=== PATIENT | female | born 1940 | race Caucasian/White ===

== ENCOUNTER → 2018-04-09 10:08 | Outpatient (CLI) | payer MEDICARE, SELFPAY ==
[2018-04-09 15:50] LABS: Absolute Lymphocyte Count 1.29 X10^3/ul (0.83-4.51); Basophil# 0.02 X10^3/uL; Basophil% 0.3 % (0-1); Eosinophil# 0.19 X10^3/uL; Eosinophils% 3.3 % (0-5); Hematocrit 41.3 % (37-47); Hemoglobin 13.6 g/dl (12.0-15.0); Lymphocyte # 1.29 X10^3/ul (4.0); Lymphocyte % 22.2 % (19-41); Mean Corp Hgb Conc 32.9 g/gl (32-36); Mean Corpuscular Hgb 31.4 pg (27.0-32.0); Mean Corpuscular Volume 95.4 fL (81-99); Mean Platelet Vol. 10.3 fl (6.2-12.0); Monocyte# 0.34 X10^3/uL; Monocyte% 5.8 % (0-10); Neutrophil # 3.97 X10^3/uL (2.7-7.7); Neutrophil % 68.2 % (47-70); Platelet Count 251 K/mm3 (150-450); RBC Distribution Width CV 12.8 % (11.6-14.6); RBC Distribution Width SD 43.3 fl (35.1-43.9); Red Blood Count 4.33 M/mm3 (4.2-5.4); White Blood Count 5.8 K/mm3 (4.4-11.0)
[2018-04-09 15:59] LABS: POSITIVE COUNT NO; POSITIVE DIFFERENTIAL NO; POSITIVE MORPHOLOGY NO
[2018-04-09 16:10] LABS: ALB/GLOB Ratio 1.2 RATIO (0.9-2.4); AST(SGOT) 20 U/L (15-37); Alanine Aminotransfer ALT/SGPT 20 U/L (13-56); Albumin, Serum 4.3 g/dL (3.2-5.0); Alkaline Phosphatase 92 U/L (45-117); Anion Gap 7 (5-15); BUN 19 mg/dL (7-18); BUN/Creat Ratio 21.6 RATIO (10-20); Calcium,Total 9.1 mg/dL (8.5-10.1); Chloride 107 mmol/L (98-107); Creatinine, Serum 0.88 mg/dL (0.55-1.02); EST Glomerular Filtration Rate 66 mL/min (>60); Est Glom Filt Rate - Afr Amer 80 mL/min (>60); Globulin 3.6 g/dL (2.2-4.2); Glucose 88 mg/dL (74-106); Potassium 4.8 mmol/L (3.5-5.1); Protein, Total 7.9 g/dL (6.4-8.2); Sodium Level 140 mmol/L (136-145); Thyroid Stim Hormone (TSH) 2.61 uIU/mL (0.358-3.74)
[2018-04-10 09:01] LABS: Vitamin D,25 Hydroxy 28.5 ng/mL (29.95-100.01)
== END ==
PROVIDERS: Family Provider Family Medicine Geriatric Medicine; PCP Family Medicine Geriatric Medicine; Visit Provider Family Medicine Geriatric Medicine
DX: R53.83 Other fatigue (principal); E55.9 Vitamin D deficiency, unspecified
CPT/HCPCS: 36415; 80053; 82306; 84443; 85025

== ENCOUNTER → 2018-10-08 10:49 | Outpatient (CLI) | payer MEDICARE, SELFPAY ==
[2018-10-08 12:28] LABS: Absolute Lymphocyte Count 0.93 X10^3/ul (0.83-4.51); Absolute Neutrophil Count 5.3 X10^3/uL (2.0-7.7); Basophil# 0.03 X10^3/uL; Basophil% 0.4 % (0-1); Eosinophil# 0.27 X10^3/uL; Eosinophils% 3.9 % (0-5); Hematocrit 42.6 % (37-47); Hemoglobin 13.6 g/dl (12.0-15.0); Lymphocyte # 0.93 X10^3/ul (4.0); Lymphocyte % 13.4 % (19-41); Mean Corp Hgb Conc 31.9 g/gl (32-36); Mean Corpuscular Hgb 30.8 pg (27.0-32.0); Mean Corpuscular Volume 96.4 fL (81-99); Mean Platelet Vol. 10.2 fl (6.2-12.0); Monocyte# 0.41 X10^3/uL; Monocyte% 5.9 % (0-10); Neutrophil # 5.28 X10^3/uL (2.7-7.7); Neutrophil % 76.3 % (47-70); Platelet Count 241 K/mm3 (150-450); RBC Distribution Width CV 13.3 % (11.6-14.6); Red Blood Count 4.42 M/mm3 (4.2-5.4); White Blood Count 6.9 K/mm3 (4.4-11.0)
[2018-10-08 12:34] LABS: POSITIVE COUNT NO; POSITIVE DIFFERENTIAL NO; POSITIVE MORPHOLOGY NO
[2018-10-08 12:36] LABS: Vitamin D,25 Hydroxy 31.6 ng/mL (29.95-100.01)
[2018-10-08 12:46] LABS: ALB/GLOB Ratio 1.2 RATIO (0.9-2.4); AST(SGOT) 21 U/L (15-37); Alanine Aminotransfer ALT/SGPT 25 U/L (13-56); Albumin, Serum 4.3 g/dL (3.2-5.0); Alkaline Phosphatase 87 U/L (45-117); Anion Gap 9 (5-15); BUN 22 mg/dL (7-18); BUN/Creat Ratio 22.3 RATIO (10-20); Calcium,Total 9.1 mg/dL (8.5-10.1); Chloride 105 mmol/L (98-107); Creatinine, Serum 0.98 mg/dL (0.55-1.02); EST Glomerular Filtration Rate 58 mL/min (>60); Est Glom Filt Rate - Afr Amer 70 mL/min (>60); Globulin 3.6 g/dL (2.2-4.2); Glucose 85 mg/dL (74-106); Potassium 4.9 mmol/L (3.5-5.1); Protein, Total 7.9 g/dL (6.4-8.2); Sodium Level 140 mmol/L (136-145); Thyroid Stim Hormone (TSH) 3.07 uIU/mL (0.358-3.74)
== END ==
PROVIDERS: Family Provider Family Medicine Geriatric Medicine; PCP Family Medicine Geriatric Medicine; Visit Provider Family Medicine Geriatric Medicine
DX: E55.9 Vitamin D deficiency, unspecified (principal); R53.83 Other fatigue
CPT/HCPCS: 36415; 80053; 82306; 84443; 85025

== ENCOUNTER → 2019-01-26 14:58 | Outpatient (CLI) | payer MEDICARE, SELFPAY | PROVIDERS: Family Provider Family Medicine Geriatric Medicine; PCP Family Medicine Geriatric Medicine; Visit Provider Family Medicine Geriatric Medicine | DX: N39.0 Urinary tract infection, site not specified (principal) | CPT/HCPCS: 87086; 87088 ==

== ENCOUNTER → 2019-04-14 12:18 | Outpatient (CLI) | payer MEDICARE, SELFPAY ==
[2019-04-14 13:15] LABS: Absolute Lymphocyte Count 1.26 X10^3/ul (0.83-4.51); Absolute Neutrophil Count 5.2 X10^3/uL (2.0-7.7); Basophil# 0.03 X10^3/uL; Basophil% 0.4 % (0-1); Eosinophil# 0.38 X10^3/uL; Eosinophils% 5.1 % (0-5); Hemoglobin 13.5 g/dl (12.0-15.0); Lymphocyte # 1.26 X10^3/ul (4.0); Lymphocyte % 16.9 % (19-41); Mean Corp Hgb Conc 32.9 g/gl (32-36); Mean Corpuscular Hgb 31.4 pg (27.0-32.0); Mean Corpuscular Volume 95.3 fL (81-99); Mean Platelet Vol. 10.1 fl (6.2-12.0); Monocyte# 0.56 X10^3/uL; Monocyte% 7.5 % (0-10); Neutrophil # 5.19 X10^3/uL (2.7-7.7); Neutrophil % 69.8 % (47-70); Platelet Count 255 K/mm3 (150-450); RBC Distribution Width CV 13.3 % (11.6-14.6); RBC Distribution Width SD 45.6 fl (35.1-43.9); White Blood Count 7.4 K/mm3 (4.4-11.0)
[2019-04-14 13:25] LABS: POSITIVE COUNT NO; POSITIVE DIFFERENTIAL NO; POSITIVE MORPHOLOGY NO
[2019-04-14 13:31] LABS: Vitamin D,25 Hydroxy 25.6 ng/mL (29.95-100.01)
[2019-04-14 13:35] LABS: ALB/GLOB Ratio 1.1 RATIO (0.9-2.4); AST(SGOT) 20 U/L (15-37); Alanine Aminotransfer ALT/SGPT 26 U/L (13-56); Alkaline Phosphatase 76 U/L (45-117); Anion Gap 7 (5-15); BUN 20 mg/dL (7-18); BUN/Creat Ratio 19.4 RATIO (10-20); Chloride 108 mmol/L (98-107); Creatinine, Serum 1.03 mg/dL (0.55-1.02); EST Glomerular Filtration Rate 55 mL/min (>60); Est Glom Filt Rate - Afr Amer 66 mL/min (>60); Globulin 3.6 g/dL (2.2-4.2); Glucose 75 mg/dL (74-106); Potassium 4.2 mmol/L (3.5-5.1); Protein, Total 7.6 g/dL (6.4-8.2); Sodium Level 141 mmol/L (136-145); Thyroid Stim Hormone (TSH) 3.48 uIU/mL (0.358-3.74)
== END ==
PROVIDERS: Family Provider Family Medicine Geriatric Medicine; PCP Family Medicine Geriatric Medicine; Visit Provider Family Medicine Geriatric Medicine
DX: E55.9 Vitamin D deficiency, unspecified (principal); R53.83 Other fatigue
CPT/HCPCS: 36415; 80053; 82306; 84443; 85025

== ENCOUNTER → 2019-06-15 07:00 | Outpatient (CLI) | payer MEDICARE, SELFPAY ==
--- NOTE | 2019-06-15 07:00 | BI_ITS ---
MAMMOGRAPHY - BILATERAL SCREENING 3-D TOMOSYNTHESIS REASON FOR EXAM: Female, 79 years old. Bilateral Screening 3-D tomosynthesis PERTINENT HISTORY: Previous stereotactic biopsy. TECHNIQUE: 2-D mammograms and 3-D Tomosynthesis of the breast (s) were performed. CAD was performed. COMPARISON: 2016 FINDINGS: The breast composition is composed of scattered fibroglandular density. Scattered benign calcifications are seen. No dense spiculated masses or suspicious microcalcifications are identified. No architectural distortion is identified. There is no skin thickening or retraction. There has been no significant change since the prior study. BI/SCREEN MAMM (CAD) W/NAVNEET BILAT IMPRESSION: No mammographic signs of malignancy. Routine yearly mammograms recommended. ASSESSMENT CATEGORY: BIRADS Category 1: Negative. A letter regarding these results will be sent to the patient by the facility within 30 days. FOLLOW UP RECOMMENDATION: Yearly follow up mammogram recommended. (A) Approximately 10% of breast cancers are not detected by mammography. A normal mammogram should not delay biopsy of a clinically suspicious abnormality. Electronically Signed: eZlalem Romero MD at 8:19 EDT , Service support ,
== END ==
PROVIDERS: Family Provider Family Medicine Geriatric Medicine; PCP Family Medicine Geriatric Medicine; Referring Provider Family Medicine Geriatric Medicine; Visit Provider Family Medicine Geriatric Medicine
DX: Z12.31 Encounter for screening mammogram for malignant neoplasm of breast (principal)
CPT/HCPCS: 77063; 77067

== ENCOUNTER → 2019-08-02 15:46 | Outpatient (CLI) | payer MEDICARE, SELFPAY | PROVIDERS: Family Provider Family Medicine Geriatric Medicine; PCP Family Medicine Geriatric Medicine | DX: R82.998 Other abnormal findings in urine (principal) | CPT/HCPCS: 87086; 87088 ==

== ENCOUNTER → 2019-09-03 13:56 | Outpatient (CLI) | payer MEDICARE, SELFPAY ==
[2019-09-03 07:39] VITALS: BMI 27.1
[2019-09-03 14:26] LABS: Mucous, Urine 0 SEEN /hpf (<or=2+); Red Blood Cells-Urine 0 SEEN /hpf (0-5)
[2019-09-03 14:51] LABS: Color, Urine Yellow (Yellow); Glucose, Dipstick Normal (Normal); Ketone-Dipstick Negative (Negative); Leukocyte Esterase-Dipstick 25 /ul (Negative); Nitrite-Dipstick Positive (Negative); Occult Blood-Urine Negative /ul (Negative); Protein-Dipstick Negative (Negative); Urine Clarity Sl. Cloudy (Clear); Urine Urobilinogen 4 mg/dl (Normal)
[2019-09-03 14:52] LABS: Urine Bilirubin Dipstick 3 mg/dL (Negative)
[2019-09-03 14:57] LABS: Bacteria RARE /hpf (None Seen); Squamous Epithelial Cells - UA 0-5 SEEN /hpf (5-10); White Blood Cells 0-5 SEEN /hpf (0-5)
== END ==
PROVIDERS: Family Provider Family Medicine Geriatric Medicine; PCP Family Medicine Geriatric Medicine; Referring Provider Physician Assistant; Visit Provider Physician Assistant
DX: R39.15 Urgency of urination (principal)
CPT/HCPCS: 81001; 87086; 87088

== ENCOUNTER → 2019-10-19 15:17 | Outpatient (CLI) | payer MEDICARE, SELFPAY ==
[2019-09-03 07:39] VITALS: BMI 27.1
--- NOTE | 2019-10-19 16:15 | RAD_ITS ---
STUDY: X-RAY - RIGHT KNEE REASON FOR EXAM: Chronic right knee pain, osteoarthritis. TECHNIQUE: 3 view(s) of the knee. COMPARISON: Radiograph report 02/21/2014. FINDINGS: Normal visualized distal femur. Normal visualized proximal tibia and fibula. Normal proximal tibiofibular articulation. There are small marginal osteophytes and severe joint space narrowing of the medial femorotibial compartment. Normal lateral femorotibial compartment. There is a small marginal osteophyte of the inferior patella without joint space narrowing of the patellofemoral articulation. The soft tissue structures are unremarkable. RAD/Knee 3 Views IMPRESSION: Arthrosis of the medial femorotibial compartment. Electronically Signed: Celso Rodriguez MD at 16:01 EST Tel , Service support ,
[2019-10-19 18:09] LABS: Absolute Lymphocyte Count 1.23 X10^3/uL (0.83-4.51); Absolute Neutrophil Count 4.1 X10^3/uL (2.0-7.7); Basophil# 0.03 X10^3/uL; Basophil% 0.5 % (0-1); Eosinophil# 0.19 X10^3/uL; Eosinophils% 3.2 % (0-5); Hematocrit 40.4 % (37-47); Hemoglobin 12.6 g/dL (12.0-15.0); Lymphocyte # 1.23 X10^3/ul (4.0); Lymphocyte % 20.8 % (19-41); Mean Corp Hgb Conc 31.2 g/dL (32-36); Mean Corpuscular Hgb 30.2 pg (27.0-32.0); Mean Corpuscular Volume 96.9 fL (81-99); Mean Platelet Vol. 10.2 fl (6.2-12.0); Monocyte# 0.35 X10^3/uL; Monocyte% 5.9 % (0-10); NRBC Flagged by Analyzer 0 % (0-5); Neutrophil % 69.4 % (47-70); Platelet Count 257 K/mm3 (150-450); RBC Distribution Width CV 12.5 % (11.6-14.6); RBC Distribution Width SD 44.3 fl (35.1-43.9); Red Blood Count 4.17 M/mm3 (4.2-5.4); White Blood Count 5.9 K/mm3 (4.4-11.0)
[2019-10-19 18:17] LABS: ALB/GLOB Ratio 1.3 RATIO (0.9-2.4); AST(SGOT) 21 U/L (15-37); Alanine Aminotransfer ALT/SGPT 23 U/L (13-56); Albumin, Serum 4.3 g/dL (3.2-5.0); Alkaline Phosphatase 82 U/L (45-117); Anion Gap 7 (5-15); BUN 17 mg/dL (7-18); BUN/Creat Ratio 17.6 RATIO (10-20); Calcium,Total 9.4 mg/dL (8.5-10.1); Chloride 109 mmol/L (98-107); Creatinine, Serum 0.97 mg/dL (0.55-1.02); EST Glomerular Filtration Rate 59 mL/min (>60); Est Glom Filt Rate - Afr Amer 71 mL/min (>60); Globulin 3.2 g/dL (2.2-4.2); Glucose 106 mg/dL (74-106); Potassium 3.9 mmol/L (3.5-5.1); Protein, Total 7.5 g/dL (6.4-8.2); Sodium Level 141 mmol/L (136-145); Thyroid Stim Hormone (TSH) 2.42 uIU/mL (0.358-3.74); Vitamin D,25 Hydroxy 25.6 ng/mL (29.95-100.01)
== END ==
PROVIDERS: Family Provider Family Medicine Geriatric Medicine; PCP Family Medicine Geriatric Medicine; Referring Provider Family Medicine Geriatric Medicine; Visit Provider Family Medicine Geriatric Medicine
DX: E55.9 Vitamin D deficiency, unspecified (principal); I10 Essential (primary) hypertension; M17.9 Osteoarthritis of knee, unspecified
CPT/HCPCS: 36415; 73562; 80053; 82306; 84443; 85025

== ENCOUNTER → 2020-06-15 13:42 | Outpatient (CLI) | payer MEDICARE, SELFPAY ==
[2019-09-03 07:39] VITALS: BMI 27.1
[2020-06-15 16:16] LABS: Thyroid Stim Hormone (TSH) 0.04 uIU/mL (0.358-3.74)
== END ==
PROVIDERS: PCP Family Medicine Geriatric Medicine; Visit Provider Family Medicine Geriatric Medicine
DX: E03.9 Hypothyroidism, unspecified (principal)
CPT/HCPCS: 36415; 84443

== ENCOUNTER → 2020-06-20 14:15 | Outpatient (CLI) | payer MEDICARE, SELFPAY ==
[2019-09-03 07:39] VITALS: BMI 27.1
--- NOTE | 2020-06-20 14:17 | BI_ITS ---
MAMMOGRAPHY - BILATERAL SCREENING REASON FOR EXAM: Female, 80 years old. Routine annual screening examination. PERTINENT HISTORY: Non-contributory. Remote left stereotactic breast biopsy. TECHNIQUE: Digital bilateral breast navneet (3D mammographic acquisition) in the CC and MLO projections. 2-D mediolateral oblique (MLO) and craniocaudad (CC) views of both breasts were obtained. CAD: Full Field Digital Mammography with Computer Added Detection was performed. COMPARISON: Comparison is made with prior study dated 06-15-19 and 01-17-16. FINDINGS: Breast Composition: There are scattered areas of fibroglandular density. There are no dominant masses or suspicious calcifications. No other significant abnormalities are identified. There has been no significant change since the prior study. BI/SCREEN MAMM (CAD) W/NAVNEET BILAT IMPRESSION: Stable bilateral screening mammogram. Yearly follow-up mammogram recommended. (A) ASSESSMENT CATEGORY: BIRADS Category 1: Negative. A letter regarding these results will be sent to the patient by the facility within 30 days. Approximately 10% of breast cancers are not detected by mammography. A normal mammogram should not delay biopsy of a clinically suspicious abnormality. [id number] Electronically Signed: Lasha Jo, at 15:20 EDT , Service support ,
== END ==
PROVIDERS: PCP Family Medicine Geriatric Medicine; Referring Provider Family Medicine Geriatric Medicine; Visit Provider Family Medicine Geriatric Medicine
DX: Z12.31 Encounter for screening mammogram for malignant neoplasm of breast (principal)
CPT/HCPCS: 77063; 77067

== ENCOUNTER → 2020-07-05 15:06 | Outpatient (CLI) | payer MEDICARE, SELFPAY ==
[2019-09-03 07:39] VITALS: BMI 27.1
[2020-07-05 15:44] LABS: Absolute Lymphocyte Count 1.21 X10^3/uL (0.83-4.51); Basophil# 0.03 X10^3/uL; Basophil% 0.5 % (0-1); Eosinophil# 0.17 X10^3/uL; Eosinophils% 2.9 % (0-5); Hemoglobin 11.5 g/dL (12.0-15.0); Lymphocyte # 1.21 X10^3/ul (4.0); Lymphocyte % 20.9 % (19-41); Mean Corp Hgb Conc 31.1 g/dL (32-36); Mean Corpuscular Hgb 29.9 pg (27.0-32.0); Mean Corpuscular Volume 96.1 fL (81-99); Mean Platelet Vol. 9.6 fl (6.2-12.0); Monocyte# 0.36 X10^3/uL; Monocyte% 6.2 % (0-10); NRBC Flagged by Analyzer 0 % (0-5); Neutrophil % 69.3 % (47-70); Platelet Count 228 K/mm3 (150-450); RBC Distribution Width CV 12.3 % (11.6-14.6); RBC Distribution Width SD 42.7 fl (35.1-43.9); Red Blood Count 3.85 M/mm3 (4.2-5.4); White Blood Count 5.8 K/mm3 (4.4-11.0)
[2020-07-05 15:52] LABS: ALB/GLOB Ratio 1.3 RATIO (0.9-2.4); AST(SGOT) 17 U/L (15-37); Alanine Aminotransfer ALT/SGPT 18 U/L (13-56); Albumin, Serum 3.8 g/dL (3.2-5.0); Alkaline Phosphatase 80 U/L (45-117); Anion Gap 6 (5-15); BUN 19 mg/dL (7-18); BUN/Creat Ratio 20.6 RATIO (10-20); Calcium,Total 8.8 mg/dL (8.5-10.1); Chloride 111 mmol/L (98-107); Creatinine, Serum 0.92 mg/dL (0.55-1.02); EST Glomerular Filtration Rate 62 mL/min (>60); Est Glom Filt Rate - Afr Amer 75 mL/min (>60); Glucose 81 mg/dL (74-106); Potassium 3.8 mmol/L (3.5-5.1); Protein, Total 6.8 g/dL (6.4-8.2); Sodium Level 142 mmol/L (136-145)
--- NOTE | 2020-07-05 16:35 | RAD_ITS ---
STUDY: X-RAY - ABDOMEN/PELVIS REASON FOR EXAM: Female, 80 years old. abdomen pain, diarrhea TECHNIQUE: AP supine and upright views of the abdomen and pelvis. COMPARISON: None. FINDINGS: Normal visualized lung bases. There is a variant loops of large and small bowel with mild distention. There is no demonstrated free abdominal air. The visualized liver, spleen and kidneys are grossly normal in size and morphology. Normal soft tissue structures. There is levoscoliosis with degenerative changes of the spine. There is artifact from clothing. RAD/Abd Inc Decub and/or Erect IMPRESSION: Air in loops of bowel suggesting ileus or enteritis. Electronically Signed: Marquis Mueller MD at 17:01 EDT , Service support ,
== END ==
PROVIDERS: PCP Family Medicine Geriatric Medicine; Referring Provider Family Medicine Geriatric Medicine; Visit Provider Family Medicine Geriatric Medicine
DX: R10.9 Unspecified abdominal pain (principal); E03.9 Hypothyroidism, unspecified
CPT/HCPCS: 36415; 74019; 80053; 85025

== ENCOUNTER → 2020-07-27 15:37 | Outpatient (CLI) | payer MEDICARE, SELFPAY ==
[2019-09-03 07:39] VITALS: BMI 27.1
[2020-07-27 17:07] LABS: Thyroid Stim Hormone (TSH) 0.11 uIU/mL (0.358-3.74)
== END ==
PROVIDERS: PCP Family Medicine Geriatric Medicine; Visit Provider Family Medicine Geriatric Medicine
DX: E03.9 Hypothyroidism, unspecified (principal)
CPT/HCPCS: 36415; 84443

== ENCOUNTER → 2020-09-21 17:19 | Outpatient (CLI) | payer MEDICARE, SELFPAY ==
[2019-09-03 07:39] VITALS: BMI 27.1
== END ==
PROVIDERS: PCP Family Medicine Geriatric Medicine; Referring Provider Family Medicine Geriatric Medicine; Visit Provider Family Medicine Geriatric Medicine
DX: R06.89 Other abnormalities of breathing (principal)
CPT/HCPCS: 87633; 87635; C9803; U0002; U0003

== ENCOUNTER → 2020-10-12 15:57 | Outpatient (CLI) | payer MEDICARE, SELFPAY ==
[2019-09-03 07:39] VITALS: BMI 27.1
--- NOTE | 2020-10-12 16:05 | RAD_ITS ---
HISTORY: low back pain that radiates down right leg ADDITIONAL HISTORY: None provided. EXAMINATION/TECHNIQUE: XR Spine Lumbar 2 or 3 Views Number of images including paperwork: 3 COMPARISON: None FINDINGS: VERTEBRAE: No acute fracture. VERTEBRAL ALIGNMENT: No traumatic subluxation. Anterolisthesis L4-5 measuring 6 mm and L5-S1 measuring 4 mm. Mild left convex lumbar curvature. DISKS AND JOINTS: Severe discogenic degenerative changes at L3-4, L4-5 and L5-S1. Mild to moderate discogenic degenerative changes elsewhere in the lumbar spine. Facet arthropathy. SOFT TISSUES: Vascular calcifications. RAD/Lumbar Spine 2 or 3 Views IMPRESSION: 1. No acute findings. 2. Lumbar spondylosis as described. at 0531 Reported and signed by: Mindy Kitchen MD Electronically Signed: Mindy Kitchen MD at 5:31 EST Tel , Service support ,
== END ==
PROVIDERS: PCP Family Medicine Geriatric Medicine; Referring Provider Family Medicine Geriatric Medicine; Visit Provider Family Medicine Geriatric Medicine
DX: M54.5 Low back pain (principal)
CPT/HCPCS: 72100

== ENCOUNTER → 2020-10-16 09:55 | Outpatient (CLI) | payer MEDICARE, SELFPAY ==
[2019-09-03 07:39] VITALS: BMI 27.1
== END ==
PROVIDERS: PCP Family Medicine Geriatric Medicine; Referring Provider Family Medicine Geriatric Medicine; Visit Provider Family Medicine Geriatric Medicine
DX: U07.1 COVID-19 (principal)
CPT/HCPCS: 87633; 87635; C9803; U0002

== ENCOUNTER → 2020-10-26 13:37 | Outpatient (CLI) | payer MEDICARE, SELFPAY ==
[2019-09-03 07:39] VITALS: BMI 27.1
[2020-10-26 17:36] LABS: Absolute Lymphocyte Count 0.93 X10^3/uL (0.83-4.51); Absolute Neutrophil Count 8.5 X10^3/uL (2.0-7.7); Basophil# 0.03 X10^3/uL; Basophil% 0.3 % (0-1); Eosinophil# 0.16 X10^3/uL; Eosinophils% 1.6 % (0-5); Hematocrit 41.3 % (37-47); Hemoglobin 13.4 g/dL (12.0-15.0); Lymphocyte # 0.93 X10^3/ul (4.0); Lymphocyte % 9.3 % (19-41); Mean Corp Hgb Conc 32.4 g/dL (32-36); Mean Corpuscular Hgb 31.5 pg (27.0-32.0); Mean Corpuscular Volume 97.2 fL (81-99); Mean Platelet Vol. 10.6 fl (6.2-12.0); Monocyte# 0.42 X10^3/uL; Monocyte% 4.2 % (0-10); NRBC Flagged by Analyzer 0 % (0-5); Neutrophil # 8.45 X10^3/uL (2.7-7.7); Neutrophil % 84.3 % (47-70); Platelet Count 265 K/mm3 (150-450); RBC Distribution Width CV 13.2 % (11.6-14.6); RBC Distribution Width SD 46.5 fl (35.1-43.9); Red Blood Count 4.25 M/mm3 (4.2-5.4)
[2020-10-26 17:50] LABS: Vitamin D,25 Hydroxy 25.6 ng/mL
[2020-10-26 17:53] LABS: ALB/GLOB Ratio 1.3 RATIO (0.9-2.4); AST(SGOT) 16 U/L (15-37); Alanine Aminotransfer ALT/SGPT 20 U/L (13-56); Albumin, Serum 4.4 g/dL (3.2-5.0); Alkaline Phosphatase 92 U/L (45-117); Anion Gap 9 (5-15); BUN 13 mg/dL (7-18); Calcium,Total 9.3 mg/dL (8.5-10.1); Chloride 108 mmol/L (98-107); EST Glomerular Filtration Rate 56 mL/min (>60); Est Glom Filt Rate - Afr Amer 68 mL/min (>60); Globulin 3.4 g/dL (2.2-4.2); Glucose 118 mg/dL (74-106); Potassium 3.7 mmol/L (3.5-5.1); Protein, Total 7.8 g/dL (6.4-8.2); Sodium Level 143 mmol/L (136-145); Thyroid Stim Hormone (TSH) 0.71 uIU/mL (0.358-3.74)
== END ==
PROVIDERS: PCP Family Medicine Geriatric Medicine; Visit Provider Family Medicine Geriatric Medicine
DX: E03.9 Hypothyroidism, unspecified (principal); E55.9 Vitamin D deficiency, unspecified; R53.83 Other fatigue
CPT/HCPCS: 36415; 80053; 82306; 84443; 85025

== ENCOUNTER → 2021-05-09 15:41 | Outpatient (CLI) | payer MEDICARE, SELFPAY ==
[2019-09-03 07:39] VITALS: BMI 27.1
[2021-05-09 16:49] LABS: Absolute Lymphocyte Count 1.42 X10^3/uL (0.83-4.51); Absolute Neutrophil Count 4.1 X10^3/uL (2.0-7.7); Basophil# 0.03 X10^3/uL; Basophil% 0.5 % (0-1); Eosinophil# 0.13 X10^3/uL; Eosinophils% 2.1 % (0-5); Hematocrit 40.1 % (37-47); Hemoglobin 12.9 g/dL (12.0-15.0); Lymphocyte # 1.42 X10^3/ul (0.83-4.51); Lymphocyte % 23.1 % (19-41); Mean Corp Hgb Conc 32.2 g/dL (32-36); Mean Corpuscular Hgb 30.6 pg (27.0-32.0); Mean Corpuscular Volume 95.2 fL (81-99); Mean Platelet Vol. 10.3 fl (6.2-12.0); Monocyte# 0.47 X10^3/uL; Monocyte% 7.6 % (0-10); NRBC Flagged by Analyzer 0 % (0-5); Neutrophil % 66.5 % (47-70); Platelet Count 290 K/mm3 (150-450); RBC Distribution Width CV 12.7 % (11.6-14.6); RBC Distribution Width SD 43.9 fl (35.1-43.9); Red Blood Count 4.21 M/mm3 (4.2-5.4); White Blood Count 6.2 K/mm3 (4.4-11.0)
[2021-05-09 17:09] LABS: ALB/GLOB Ratio 1.2 RATIO (0.9-2.4); AST(SGOT) 22 U/L (15-37); Alanine Aminotransfer ALT/SGPT 22 U/L (13-56); Albumin, Serum 4.2 g/dL (3.2-5.0); Alkaline Phosphatase 91 U/L (45-117); Anion Gap 7 (5-15); BUN 13 mg/dL (7-18); BUN/Creat Ratio 13.4 RATIO (10-20); Chloride 108 mmol/L (98-107); Creatinine, Serum 0.97 mg/dL (0.55-1.02); EST Glomerular Filtration Rate 58 mL/min (>60); Est Glom Filt Rate - Afr Amer 70 mL/min (>60); Globulin 3.5 g/dL (2.2-4.2); Glucose 77 mg/dL (74-106); Potassium 4.2 mmol/L (3.5-5.1); Protein, Total 7.7 g/dL (6.4-8.2); Sodium Level 140 mmol/L (136-145); Thyroid Stim Hormone (TSH) 1.61 uIU/mL (0.358-3.74)
[2021-05-09 17:11] LABS: Vitamin D,25 Hydroxy 32.3 ng/mL
== END ==
PROVIDERS: PCP Family Medicine Geriatric Medicine; Visit Provider Family Medicine Geriatric Medicine
DX: E55.9 Vitamin D deficiency, unspecified (principal); I10 Essential (primary) hypertension
CPT/HCPCS: 36415; 80053; 82306; 84443; 85025

== ENCOUNTER → 2021-06-22 06:56 | Outpatient (CLI) | payer MEDICARE, SELFPAY ==
[2019-09-03 07:39] VITALS: BMI 27.1
--- NOTE | 2021-06-22 07:08 | BI_ITS ---
MAMMOGRAPHY - BILATERAL SCREENING 3-D TOMOSYNTHESIS REASON FOR EXAM: Female, 81 years old. SCREENING PERTINENT HISTORY: No significant family history. TECHNIQUE: 2-D mammograms and 3-D Tomosynthesis of the breast (s) were performed. CAD was performed. COMPARISON: 06/20/2020 FINDINGS: The breast composition is composed of scattered fibroglandular density. Scattered benign calcifications are seen. No dense spiculated masses or suspicious microcalcifications are identified. No architectural distortion is identified. There is no skin thickening or retraction. There has been no significant change since the prior study. BI/SCRN MAMM (CAD)W/NAVNEET BILAT IMPRESSION: No mammographic signs of malignancy. Routine yearly mammograms recommended. ASSESSMENT CATEGORY: BIRADS Category 2: Benign. A letter regarding these results will be sent to the patient by the facility within 30 days. FOLLOW UP RECOMMENDATION: Yearly follow up mammogram recommended. (A) Approximately 10% of breast cancers are not detected by mammography. A normal mammogram should not delay biopsy of a clinically suspicious abnormality. Electronically Signed: Zelalem Romero MD at 8:57 EDT , Service support ,
== END ==
PROVIDERS: PCP Family Medicine Geriatric Medicine; Referring Provider Family Medicine Geriatric Medicine; Visit Provider Family Medicine Geriatric Medicine
DX: Z12.31 Encounter for screening mammogram for malignant neoplasm of breast (principal)
CPT/HCPCS: 77063; 77067

== ENCOUNTER → 2021-11-07 13:20 | Outpatient (CLI) | payer MEDICARE, SELFPAY ==
[2021-11-07 16:43] LABS: Absolute Lymphocyte Count 1.18 X10^3/uL (0.83-4.51); Absolute Neutrophil Count 4.7 X10^3/uL (2.0-7.7); Basophil# 0.05 X10^3/uL; Basophil% 0.8 % (0-1); Eosinophil# 0.21 X10^3/uL; Eosinophils% 3.2 % (0-5); Hematocrit 40.2 % (37-47); Hemoglobin 13.2 g/dL (12.0-15.0); Lymphocyte # 1.18 X10^3/ul (0.83-4.51); Lymphocyte % 18.2 % (19-41); Mean Corp Hgb Conc 32.8 g/dL (32-36); Mean Corpuscular Hgb 31.3 pg (27.0-32.0); Mean Corpuscular Volume 95.3 fL (81-99); Mean Platelet Vol. 10.2 fl (6.2-12.0); Monocyte# 0.33 X10^3/uL; Monocyte% 5.1 % (0-10); NRBC Flagged by Analyzer 0 % (0-5); Neutrophil % 72.4 % (47-70); Platelet Count 276 K/mm3 (150-450); RBC Distribution Width CV 12.6 % (11.6-14.6); Red Blood Count 4.22 M/mm3 (4.2-5.4); White Blood Count 6.5 K/mm3 (4.4-11.0)
[2021-11-07 16:54] LABS: Vitamin D,25 Hydroxy 26.2 ng/mL
[2021-11-07 17:09] LABS: ALB/GLOB Ratio 1.1 RATIO (0.9-2.4); AST(SGOT) 18 U/L (15-37); Alanine Aminotransfer ALT/SGPT 23 U/L (13-56); Albumin, Serum 4.1 g/dL (3.2-5.0); Alkaline Phosphatase 91 U/L (45-117); Anion Gap 8 (5-15); BUN 17 mg/dL (7-18); BUN/Creat Ratio 15.6 RATIO (10-20); Calcium,Total 9.1 mg/dL (8.5-10.1); Chloride 109 mmol/L (98-107); Creatinine, Serum 1.09 mg/dL (0.55-1.02); EST Glomerular Filtration Rate 51 mL/min (>60); Est Glom Filt Rate - Afr Amer 62 mL/min (>60); Globulin 3.6 g/dL (2.2-4.2); Glucose 133 mg/dL (74-106); Potassium 4.3 mmol/L (3.5-5.1); Protein, Total 7.7 g/dL (6.4-8.2); Sodium Level 142 mmol/L (136-145); Thyroid Stim Hormone (TSH) 1.27 uIU/mL (0.358-3.74)
== END ==
PROVIDERS: PCP Family Medicine Geriatric Medicine; Visit Provider Family Medicine Geriatric Medicine
DX: E55.9 Vitamin D deficiency, unspecified (principal); I10 Essential (primary) hypertension
CPT/HCPCS: 36415; 80053; 82306; 84443; 85025

== ENCOUNTER 2022-01-29 08:23 | Outpatient (CLI) | payer MEDICARE, SELFPAY ==
--- NOTE | 2022-01-29 08:30 | BD_ITS ---
STUDY: DUAL ENERGY X-RAY ABSORPTIOMETRY / DXA REASON FOR EXAM: Female, 81 years old. [id number]. The patient is postmenopausal. TECHNIQUE: Bone Mineral Density (BMD) measurements of lumbar spine and bilateral hips were obtained. COMPARISON: Comparison is made with prior examination dated 06/30/2014. FINDINGS: Lumbar Spine (L1-L4): g/cm2 (0.995) / T-score (-0.4) / Z-score (2.4) Findings are suggestive of normal bone density with a low fracture risk. Left Femur Total: g/cm2 (0.858) / T-score (-0.7) / Z-score (1.6) Left Femoral Neck: g/cm2 (0.784) / T-score (-0.6) / Z-score (1.9) Right Femur Total: g/cm2 (0.869) / T-score (-0.6) / Z-score (1.7) Right Femoral Neck: g/cm2 (0.755) / T-score (-0.8) / Z-score (1.6) The T-Scores on the most recent prior examination were: Lumbar Spine (L1-L4): There has been worsening of bone density since the previous examination. Left Femur Total: which represents a worsening of 16.4%. Right Femur Total: which represents a worsening of 11%. BD/Dexa Bone Density Study IMPRESSION: The patient is considered normal as outlined below according to World [employer] Organization (WHO) criteria with a low fracture risk. There has been worsening of bone density since the previous examination. Reference Information: The T-score is the number of standard deviations above or below the standard which is normal for young adults at their peak bone mineral density. The World Health Organization (WHO) interprets the T-scores as follows: Above -1 Normal bone density Between -1 and -2.5 Osteopenia Equal to / or below -2.5 Osteoporosis As a practical clinical guideline, osteopenia may be graded as follows: Mild -1 through -1.5 Moderate -1.6 through -2.0 Severe -2.1 through -2.4 The Z-score is the number of standard deviations above or below age-matched controls. A Z-score of less than -1.5 would be considered abnormal. References: 1. NIH Osteoporosis and Related Bone Diseases www osteo.org 2. International Society for Clinical Densitometry www iscd.org 3. National Osteoporosis Foundation www nof.org Electronically Signed: Lasha Jo MD at 9:39 EST ,
== END 2022-01-29 23:59 | disposition home or self-care (01) ==
LOC: OPBD 08:24
PROVIDERS: PCP Family Medicine Geriatric Medicine; Visit Provider Family Medicine Geriatric Medicine
DX: Z78.0 Asymptomatic menopausal state (principal)
CPT/HCPCS: 77080

== ENCOUNTER → 2022-05-15 | Outpatient (CLI) | payer MEDICARE, SELFPAY ==
[2022-05-15 16:57] LABS: Absolute Lymphocyte Count 1.49 X10^3/uL (0.83-4.51); Absolute Neutrophil Count 5.7 X10^3/uL (2.0-7.7); Basophil# 0.06 X10^3/uL; Basophil% 0.8 % (0-1); Eosinophil# 0.18 X10^3/uL; Eosinophils% 2.3 % (0-5); Hemoglobin 12.6 g/dL (12.0-15.0); Lymphocyte # 1.49 X10^3/ul (0.83-4.51); Mean Corp Hgb Conc 31.5 g/dL (32-36); Mean Corpuscular Hgb 29.9 pg (27.0-32.0); Mean Corpuscular Volume 94.8 fL (81-99); Mean Platelet Vol. 10.3 fl (6.2-12.0); Monocyte# 0.39 X10^3/uL; NRBC Flagged by Analyzer 0 % (0-5); Neutrophil # 5.71 X10^3/uL (2.7-7.7); Neutrophil % 72.6 % (47-70); Platelet Count 258 K/mm3 (150-450); RBC Distribution Width SD 44.4 fl (35.1-43.9); Red Blood Count 4.22 M/mm3 (4.2-5.4); White Blood Count 7.9 K/mm3 (4.4-11.0)
[2022-05-15 17:11] LABS: Vitamin D,25 Hydroxy 30.1 ng/mL
[2022-05-15 17:21] LABS: ALB/GLOB Ratio 1.2 RATIO (0.9-2.4); AST(SGOT) 17 U/L (15-37); Alanine Aminotransfer ALT/SGPT 21 U/L (13-56); Albumin, Serum 4.1 g/dL (3.2-5.0); Alkaline Phosphatase 90 U/L (45-117); Anion Gap 7 (5-15); BUN 20 mg/dL (7-18); BUN/Creat Ratio 20.8 RATIO (10-20); Calcium,Total 9.2 mg/dL (8.5-10.1); Chloride 109 mmol/L (98-107); Creatinine, Serum 0.96 mg/dL (0.55-1.02); EST Glomerular Filtration Rate 59 mL/min (>60); Est Glom Filt Rate - Afr Amer 71 mL/min (>60); Globulin 3.5 g/dL (2.2-4.2); Glucose 81 mg/dL (74-106); Potassium 4.1 mmol/L (3.5-5.1); Protein, Total 7.6 g/dL (6.4-8.2); Sodium Level 140 mmol/L (136-145); Thyroid Stim Hormone (TSH) 1.45 uIU/mL (0.358-3.74)
== END | disposition home or self-care (01) ==
LOC: POLAB3 11:55
PROVIDERS: PCP Family Medicine Geriatric Medicine; Visit Provider Family Medicine Geriatric Medicine
DX: R53.83 Other fatigue (principal); E55.9 Vitamin D deficiency, unspecified
CPT/HCPCS: 36415; 80053; 82306; 84443; 85025

== ENCOUNTER → 2022-06-13 | Outpatient (CLI) | payer MEDICARE, SELFPAY | END | disposition home or self-care (01) | PROVIDERS: PCP Family Medicine Geriatric Medicine; Referring Provider Family Medicine Geriatric Medicine; Visit Provider Family Medicine Geriatric Medicine | DX: R68.83 Chills (without fever) (principal) | CPT/HCPCS: 87635; U0003; U0005 ==

== ENCOUNTER → 2022-06-25 | Outpatient (CLI) | payer MEDICARE, SELFPAY ==
--- NOTE | 2022-06-25 10:38 | BI_ITS ---
MAMMOGRAPHY - BILATERAL SCREENING 3-D TOMOSYNTHESIS REASON FOR EXAM: Female, 82 years old. Routine screening PERTINENT HISTORY: No significant family history. TECHNIQUE: 2-D mammograms and 3-D Tomosynthesis of the breast (s) were performed. CAD was performed. COMPARISON: 06/22/2021 FINDINGS: The breast composition is composed of scattered fibroglandular density. Scattered benign calcifications are seen. No dense spiculated masses or suspicious microcalcifications are identified. No architectural distortion is identified. There is no skin thickening or retraction. There has been no significant change since the prior study. BI/SCRN MAMM (CAD)W/NAVNEET BILAT IMPRESSION: No mammographic signs of malignancy. Routine yearly mammograms recommended. ASSESSMENT CATEGORY: BIRADS Category 2: Benign. A letter regarding these results will be sent to the patient by the facility within 30 days. FOLLOW UP RECOMMENDATION: Yearly follow up mammogram recommended. (A) Approximately 10% of breast cancers are not detected by mammography. A normal mammogram should not delay biopsy of a clinically suspicious abnormality. Electronically Signed: Zelalem Romero MD at 15:34 EDT ,
== END | disposition home or self-care (01) ==
LOC: OPBI 10:37
PROVIDERS: PCP Family Medicine Geriatric Medicine; Visit Provider Family Medicine Geriatric Medicine
DX: Z12.31 Encounter for screening mammogram for malignant neoplasm of breast (principal)
CPT/HCPCS: 77063; 77067

== ENCOUNTER → 2022-10-24 | Outpatient (CLI) | payer MEDICARE, SELFPAY | END | disposition home or self-care (01) | LOC: PSN 10:15 | PROVIDERS: PCP Family Medicine Geriatric Medicine; Referring Provider Family Medicine Geriatric Medicine; Visit Provider Family Medicine Geriatric Medicine | DX: R68.83 Chills (without fever) (principal); Z20.822 Contact with and (suspected) exposure to COVID-19 | CPT/HCPCS: 87635; 87804; 87807; C9803; U0003; U0005 ==

== ENCOUNTER → 2022-11-13 | Outpatient (CLI) | payer MEDICARE, SELFPAY ==
[2022-11-13 17:07] LABS: Absolute Lymphocyte Count 1.39 X10^3/uL (0.83-4.51); Absolute Neutrophil Count 4.2 X10^3/uL (2.0-7.7); Basophil# 0.05 X10^3/uL; Basophil% 0.8 % (0-1); Eosinophil# 0.13 X10^3/uL; Eosinophils% 2.1 % (0-5); Hematocrit 40.7 % (37-47); Hemoglobin 13.3 g/dL (12.0-15.0); Lymphocyte # 1.39 X10^3/ul (0.83-4.51); Lymphocyte % 22.4 % (19-41); Mean Corp Hgb Conc 32.7 g/dL (32-36); Mean Corpuscular Hgb 31.3 pg (27.0-32.0); Mean Corpuscular Volume 95.8 fL (81-99); Mean Platelet Vol. 10.3 fl (6.2-12.0); Monocyte# 0.39 X10^3/uL; Monocyte% 6.3 % (0-10); NRBC Flagged by Analyzer 0 % (0-5); Neutrophil # 4.23 X10^3/uL (2.7-7.7); Neutrophil % 68.2 % (47-70); Platelet Count 281 K/mm3 (150-450); RBC Distribution Width CV 12.5 % (11.6-14.6); RBC Distribution Width SD 43.7 fl (35.1-43.9); Red Blood Count 4.25 M/mm3 (4.2-5.4); White Blood Count 6.2 K/mm3 (4.4-11.0)
[2022-11-13 17:41] LABS: Vitamin D,25 Hydroxy 30.2 ng/mL
[2022-11-13 18:17] LABS: ALB/GLOB Ratio 1.1 RATIO (0.9-2.4); AST(SGOT) 19 U/L (15-37); Alanine Aminotransfer ALT/SGPT 21 U/L (13-56); Albumin, Serum 4.1 g/dL (3.2-5.0); Alkaline Phosphatase 88 U/L (45-117); Anion Gap 7 (5-15); BUN 15 mg/dL (7-18); Calcium,Total 9.5 mg/dL (8.5-10.1); Chloride 105 mmol/L (98-107); EST Glomerular Filtration Rate 56 mL/min (>60); Est Glom Filt Rate - Afr Amer 68 mL/min (>60); Globulin 3.6 g/dL (2.2-4.2); Glucose 104 mg/dL (74-106); Potassium 4.3 mmol/L (3.5-5.1); Protein, Total 7.7 g/dL (6.4-8.2); Sodium Level 138 mmol/L (136-145)
== END | disposition home or self-care (01) ==
LOC: POLAB3 13:45
PROVIDERS: PCP Family Medicine Geriatric Medicine; Visit Provider Family Medicine Geriatric Medicine
DX: E55.9 Vitamin D deficiency, unspecified (principal); R53.83 Other fatigue
CPT/HCPCS: 36415; 80053; 82306; 84443; 85025

== ENCOUNTER → 2023-02-20 | Outpatient (CLI) | payer MEDICARE, SELFPAY ==
--- NOTE | 2023-02-20 08:45 | BI_ITS ---
MAMMOGRAPHY - BILATERAL DIAGNOSTIC REASON FOR EXAM: Female, 82 years old. Left breast tenderness. PERTINENT HISTORY: Non-contributory. History of remote left stereotactic breast biopsy. TECHNIQUE: Digital bilateral breast nanci (3D mammographic acquisition) in the CC and MLO projections. 2-D mediolateral oblique (MLO) and craniocaudad (CC) views of both breasts were obtained. CAD: Full Field Digital Mammography with Computer Added Detection was performed. COMPARISON: Comparison is made with prior mammogram dated June 25, 2022. FINDINGS: Breast Composition: There are scattered areas of fibroglandular density. There are no dominant masses or suspicious calcifications. Stable mild asymmetry of breast tissue were more breast tissue is seen in the upper-outer quadrant of the left breast as compared to the right breast. Stable benign-appearing bilateral axillary lymph nodes. No other significant abnormalities are identified. There has been no significant change since the prior study. BI/DIAG MAMM W/CAD, BILAT IMPRESSION: Stable bilateral diagnostic mammogram. With the patient''s history of left breast tenderness, correlation with ultrasound is recommended. ASSESSMENT CATEGORY: BIRADS Category 0: Incomplete. Need additional imaging evaluation. A letter regarding these results will be sent to the patient by the facility within 30 days. Approximately 10% of breast cancers are not detected by mammography. A normal mammogram should not delay biopsy of a clinically suspicious abnormality. Electronically Signed: Lasha Jo MD at 10:00 EDT ,
--- NOTE | 2023-02-20 08:46 | US_ITS ---
STUDY: ULTRASOUND BREAST - LEFT REASON FOR EXAM: Female, 82 years old. Pain in the left breast. TECHNIQUE: Axial and longitudinal images of the LEFT breast were performed with a high resolution ultrasound transducer. # OF IMAGES: 45 COMPARISON: Comparison is made with prior mammogram done earlier today. FINDINGS: LEFT Breast: The lateral aspect of the left breast was examined with ultrasound. No sonographic abnormality is seen. US/Breast Limited Unilateral IMPRESSION: No sonographic abnormality is seen. ASSESSMENT CATEGORY: BIRADS Category 1: Negative. A letter regarding these results will be sent to the patient by the facility within 30 days. Electronically Signed: Lasha Jo MD at 10:29 EDT ,
== END | disposition home or self-care (01) ==
LOC: OPBI 08:41
PROVIDERS: PCP Family Medicine Geriatric Medicine; Referring Provider Obstetrics & Gynecology; Visit Provider Obstetrics & Gynecology
DX: N64.4 Mastodynia (principal)
CPT/HCPCS: 76642; 77062; 77066; G0279

== ENCOUNTER → 2023-05-21 | Outpatient (CLI) | payer MEDICARE, SELFPAY ==
[2023-05-21 14:39] LABS: Absolute Lymphocyte Count 1.35 X10^3/uL (0.83-4.51); Absolute Neutrophil Count 4.5 X10^3/uL (2.0-7.7); Basophil# 0.04 X10^3/uL; Basophil% 0.6 % (0-1); Eosinophil# 0.18 X10^3/uL; Eosinophils% 2.8 % (0-5); Hematocrit 39.4 % (37-47); Lymphocyte # 1.35 X10^3/ul (0.83-4.51); Lymphocyte % 20.7 % (19-41); Mean Corpuscular Hgb 31.9 pg (27.0-32.0); Mean Corpuscular Volume 96.6 fL (81-99); Monocyte# 0.42 X10^3/uL; Monocyte% 6.4 % (0-10); NRBC Flagged by Analyzer 0 % (0-5); Neutrophil # 4.51 X10^3/uL (2.7-7.7); Neutrophil % 69.2 % (47-70); Platelet Count 272 K/mm3 (150-450); RBC Distribution Width CV 12.7 % (11.6-14.6); RBC Distribution Width SD 44.6 fl (35.1-43.9); Red Blood Count 4.08 M/mm3 (4.2-5.4); White Blood Count 6.5 K/mm3 (4.4-11.0)
[2023-05-21 15:10] LABS: Vitamin D,25 Hydroxy 30.7 ng/mL
[2023-05-21 15:37] LABS: ALB/GLOB Ratio 1.1 RATIO (0.9-2.4); AST(SGOT) 23 U/L (15-37); Alanine Aminotransfer ALT/SGPT 17 U/L (13-56); Albumin, Serum 3.8 g/dL (3.2-5.0); Alkaline Phosphatase 85 U/L (45-117); Anion Gap 4 (5-15); BUN 16 mg/dL (7-18); BUN/Creat Ratio 16.2 RATIO (10-20); Calcium,Total 9.2 mg/dL (8.5-10.1); Chloride 109 mmol/L (98-107); Creatinine, Serum 0.99 mg/dL (0.55-1.02); EST Glomerular Filtration Rate 57 mL/min (>60); Est Glom Filt Rate - Afr Amer 69 mL/min (>60); Globulin 3.5 g/dL (2.2-4.2); Glucose 97 mg/dL (74-106); Potassium 4.7 mmol/L (3.5-5.1); Protein, Total 7.3 g/dL (6.4-8.2); Sodium Level 140 mmol/L (136-145); Thyroid Stim Hormone (TSH) 3.12 uIU/mL (0.358-3.74)
== END | disposition home or self-care (01) ==
LOC: LAB 14:11
PROVIDERS: PCP Family Medicine Geriatric Medicine; Referring Provider Family Medicine Geriatric Medicine; Visit Provider Family Medicine Geriatric Medicine
DX: R53.83 Other fatigue (principal); E55.9 Vitamin D deficiency, unspecified
CPT/HCPCS: 36415; 80053; 82306; 84443; 85025

== ENCOUNTER → 2023-08-22 | Outpatient (CLI) | payer MEDICARE, SELFPAY | END | disposition home or self-care (01) | LOC: PSN 12:01 | PROVIDERS: PCP Family Medicine Geriatric Medicine; Referring Provider Family Medicine Geriatric Medicine; Visit Provider Family Medicine Geriatric Medicine | DX: R68.83 Chills (without fever) (principal) | CPT/HCPCS: 87635; 87804; 87807; C9803 ==

== ENCOUNTER → 2023-09-17 | Outpatient (CLI) | payer MEDICARE, SELFPAY ==
--- NOTE | 2023-09-17 06:55 | MRI_ITS ---
STUDY: MRI BRAIN WITHOUT CONTRAST REASON FOR EXAM: Female, 83 years old. LT FACIAL NUMBNESS TECHNIQUE: Standardized multiplanar fat and water weighted pulse sequences were obtained. COMPARISON: Head CT dated September 17, 2023. FINDINGS: There is moderate cerebral atrophy with widening of the extra-axial spaces and ventricular dilatation. There are a limited number of small white matter hyperintensities, distributed throughout the deep white matter tracts of the cerebral hemispheres, consistent with mild chronic white matter ischemic changes. There is no evidence for recent intracranial ischemia or other cause of cytotoxic edema on diffusion weighted imaging (DWI). There is no evidence for recent intracranial ischemia or other cause of cytotoxic edema on diffusion weighted imaging (DWI). Normal bilateral basal ganglia. Normal thalami. There is no extra-axial fluid accumulation. Normal flow voids within the major intracranial circulation suggesting patency by spin echo criteria. Normal sella turcica, pituitary gland, infundibular stalk, optic chiasm and hypothalamus. Normal tectal plate and pineal gland. Normal midbrain, ki and medulla. Normal cerebellum. Normal basal cisterns. Normal bilateral temporal bones. Normal bilateral internal auditory canals. No demonstrated orbital abnormality, within the constraints of a routine brain study. Normal visualized paranasal sinuses. Normal calvarium and skull base. Normal visualized soft tissue structures. Normal visualized upper cervical spine. There is significant mucous opacification of the bilateral mastoid air cells consistent with otomastoiditis. MRI/Brain without Contrast IMPRESSION: 1. Involutional and mild chronic ischemic changes of the brain, as described above. Electronically Signed: Raymundo Enciso MD at 16:05 EDT ,
--- NOTE | 2023-09-17 07:51 | CT_ITS ---
STUDY: CT BRAIN WITHOUT CONTRAST REASON FOR EXAM: Female, 83 years old. LEFT FACIAL NUMBNESS RADIATION DOSAGE (If Supplied By Facility): CTDIvol = ( 47.06 ) mGy, DLP = ( 907.97 ) mGycm TECHNIQUE: Transaxial CT imaging of the brain was performed without administration of intravenous contrast material. Individualized dose optimization techniques were used for this CT. COMPARISON: No relevant priors. FINDINGS: Normal soft tissue structures. Normal calvarium. Calcific plaquing of the cavernous carotids. Moderate atrophy and mild periventricular white matter ischemic changes.. Normal basal ganglia and thalami. Normal brainstem. Normal cerebellum. There is no intracranial hemorrhage. There are no findings of an acute ischemic infarction. Normal visualized paranasal sinuses. CT/Brain/Head without Contrast IMPRESSION: Atrophy and mild periventricular white matter ischemic change. No acute bleed. If concern for acute infarct MRI recommended Electronically Signed: Brannon Davison MD at 17:07 EDT ,
== END | disposition home or self-care (01) ==
PROVIDERS: PCP Family Medicine Geriatric Medicine; Referring Provider Family Medicine Geriatric Medicine; Visit Provider Family Medicine Geriatric Medicine
DX: R20.0 Anesthesia of skin (principal)
CPT/HCPCS: 70450; 70551

== ENCOUNTER → 2023-11-13 | Outpatient (CLI) | payer MEDICARE, SELFPAY ==
[2023-11-13 17:19] LABS: Absolute Lymphocyte Count 1.32 X10^3/uL (0.83-4.51); Absolute Neutrophil Count 4.7 X10^3/uL (2.0-7.7); Basophil# 0.05 X10^3/uL; Basophil% 0.7 % (0-1); Eosinophil# 0.22 X10^3/uL; Eosinophils% 3.3 % (0-5); Lymphocyte # 1.32 X10^3/ul (0.83-4.51); Lymphocyte % 19.5 % (19-41); Mean Corp Hgb Conc 31.7 g/dL (32-36); Mean Corpuscular Hgb 30.4 pg (27.0-32.0); Mean Platelet Vol. 9.8 fl (6.2-12.0); Monocyte# 0.51 X10^3/uL; Monocyte% 7.5 % (0-10); NRBC Flagged by Analyzer 0 % (0-5); Neutrophil # 4.65 X10^3/uL (2.7-7.7); Neutrophil % 68.9 % (47-70); Platelet Count 270 K/mm3 (150-450); RBC Distribution Width CV 12.6 % (11.6-14.6); RBC Distribution Width SD 44.5 fl (35.1-43.9); Red Blood Count 4.27 M/mm3 (4.2-5.4); White Blood Count 6.8 K/mm3 (4.4-11.0)
[2023-11-13 18:08] LABS: ALB/GLOB Ratio 1.2 RATIO (0.9-2.4); AST(SGOT) 16 U/L (15-37); Alanine Aminotransfer ALT/SGPT 18 U/L (13-56); Albumin, Serum 4.2 g/dL (3.2-5.0); Alkaline Phosphatase 84 U/L (45-117); Anion Gap 6 (5-15); BUN 19 mg/dL (7-18); BUN/Creat Ratio 20.5 RATIO (10-20); Calcium,Total 8.8 mg/dL (8.5-10.1); Chloride 112 mmol/L (98-107); Creatinine, Serum 0.93 mg/dL (0.55-1.02); EST Glomerular Filtration Rate 61 mL/min (>60); Est Glom Filt Rate - Afr Amer 74 mL/min (>60); Globulin 3.5 g/dL (2.2-4.2); Glucose 87 mg/dL (74-106); Potassium 3.9 mmol/L (3.5-5.1); Protein, Total 7.7 g/dL (6.4-8.2); Sodium Level 143 mmol/L (136-145); Thyroid Stim Hormone (TSH) 2.89 uIU/mL (0.358-3.74)
== END | disposition home or self-care (01) ==
LOC: LAB 16:46
PROVIDERS: PCP Family Medicine Geriatric Medicine; Referring Provider Family Medicine Geriatric Medicine; Visit Provider Family Medicine Geriatric Medicine
DX: R53.83 Other fatigue (principal); E55.9 Vitamin D deficiency, unspecified
CPT/HCPCS: 36415; 80053; 82306; 84443; 85025

== ENCOUNTER → 2023-12-04 | Outpatient (CLI) | payer MEDICARE, SELFPAY ==
--- NOTE | 2023-12-04 17:22 | RAD_ITS ---
STUDY: X-RAY - RIGHT TIBIA AND FIBULA REASON FOR EXAM: Female, 83 years old. PAIN AND SWELLING TECHNIQUE: 2 view(s) of the tibia and fibula were obtained. COMPARISON: None. FINDINGS: Normal visualized tibia. Normal visualized fibula. The soft tissue structures are unremarkable. RAD/Tibia & Fibula 2 Views IMPRESSION: Normal x-ray examination of the tibia and fibula. Electronically Signed: Zelalem Roemro MD at 19:33 EST ,
--- OUTSIDE RECORDS SUMMARY | 2023-12-04 17:22 | XMS RPT_ITS | CCD ---
Author Name Unknown Address [address] [place] [address] Organization [facility] Care Team Providers Care Supervisor Compressed Yeast Name Role Phone Carmelo Yao Primary Care Provider [phone] Carmelo Yao Primary Care Provider Results Test Name Value Interpretation Reference Range Facil ity Encounters Encounter Date Encounter Type Care Provider Facility Start: 09-19-2023 Telephone encounter Aisha Hawkins urology Procedures Date Procedure Procedure Detail Performing Clinician Start: 05-23-2000 CONVERTED SURGICAL PATHOLOGY Brian Mireles Work Phone: Plan of Treatment Date Care Activity Detail Author Start: 07-25-2023 Influenza vaccination Influenza Vacc ine (#1) [facility] Start: 11-24-2022 Advance Directive Discussion Advance Directive Discussion [facility] Start: 11-24-2022 Depression Assessment Depression Ass essment [facility] Start: 07-25-2020 Influenza vaccination INFLUENZA (#1) [facility] Start: 2003 ADVANCE DIRECTIVE DISCUSSION ADVANCE DIRECTIVE DISCUSSION [facility] Start: 2003 BONE DENSITY BONE DENSITY [facility] Start: 2003 Bone Density Screening Bone Density Screening [facility] Start: 2003 Pneumococcal Vaccine : 65+ (1 - PCV) Pneumococcal Vaccine: 65+ (1 - PCV) [facility] Start: 2003 PNEUMOVAX AGE 65 AND OVER WITH 5YR LOOKBACK (#1) PNEUMOVAX AGE 65 AND OVER WITH 5YR LOOKBACK (#1) [facility] Start: 1998 RSV Vaccine (1 - 1-d ose 60+ series) RSV Vaccine (1 - 1-dose 60+ series) [facility] Start: 1988 SHINGRIX VACCINE (1 of 2) SHINGRIX V ACCINE (1 of 2) [facility] Start: 1983 DIABET[facility] SCREEN [facility] Start: 1983 Diabetes Screening Diabetes Screenin g [facility] Start: 1957 Urine microalbumin profile [facility] Start: 1938 Covid-19 Vaccine (#1) Covid-19 Vacci ne (#1) [facility] Payers Date Payer Category Payer Private Health Insurance [employer] A ETNA POS [id number] 2019-Present [phone] [address] [place] [address] POS [id number] Private Health Insurance [employer] Z ZZAETNA [id number] Through 2019 PPO [id number] Social History Date Type Detail Facility Tobacco smoking stat [facility] Unknown if ever smoked [facility] Start: 1940 Sex Assigned At Not on file [facility] Gender identity Not on file [facility] inic Note 09-19-2023 Telephone Encounter - Aisha Phoenix - 09/19/2023 2:51 PM EDT Note Date & Type Note Facility 09-19-2023 Miscellaneous Notes Formattin g of this note might be different from the original. IRB [id number]. [facility] Brain Study (CCBS) Parking Meter Installer: Khanh Strong MD, , Eulogio Germain MD, Enlisted Aircrew/Aerial Observer/Gunner: Renetta Choi and Email: Contacted Ann by phone to discuss the [facility] Brain Study (CCBS): [employer] and Predictors of Neurological Disorders IRB [id number]. Ann Ramesh is interested and eligible for the study. Ann Ramesh will be placed on the waitlist to be contacted when an appointment becomes available. Aisha Phoenix documented in this encounter [facility] Summary Purpose Family History No Family History Records Found Advance Directives No Advanced Directives Records Found Additional Source Comments Source Comments (unrecognize d section and content) In the event this informatio n is protected by the Federal Confidentiality of Alcohol and Drug Abuse Patient Records regulations: The Federal rules restrict any use of the information to criminally investigate or prosecute any alcohol or drug abuse patient.[facility] the event this information is protected by the Federal Confidentiality of Alcohol and Drug Abuse Patient Records regulations: The Federal rules restrict any use of the information to criminally investigate or prosecute any alcohol or drug abuse patient.[facility] Reason for Visit (unrecogniz ed section and content) Care Teams (unrecognized sec tion and content) INFORMATION SOURCE (unrecogn ized section and content) FOR RECORDS PERTAINING TO PATIENTS WHO ARE OR HAVE BEEN ENROLLED IN A CHEMICAL DEPENDENCY/SUBSTANCEABUSE PROGRAM, SOME INFORMATION MAY BE OMITTED. This clinical summary was aggregated from multiple sources. Caution should be exercised in using it in the provision of clinical care. This summary normalizes information from multiple sources, and as a consequence, information in this document may materially change the coding, format and clinical context of patient data. In addition, data may be omitted in some cases. CLINICAL DECISIONS SHOULD BE BASED ON THE PRIMARY CLINICAL RECORDS. [facility] provides no warranty or guarantee of the accuracy or completeness of information in this document.
== END | disposition home or self-care (01) ==
LOC: RAD 17:19
PROVIDERS: PCP Family Medicine Geriatric Medicine; Referring Provider Family Medicine Geriatric Medicine; Visit Provider Family Medicine Geriatric Medicine
DX: M89.8X6 Other specified disorders of bone, lower leg (principal); M79.89 Other specified soft tissue disorders
CPT/HCPCS: 73590

== ENCOUNTER → 2023-12-11 | Outpatient (CLI) | payer MEDICARE, SELFPAY ==
--- NOTE | 2023-12-11 13:51 | VDLE_ITS ---
Reason For Study: Right leg edema RIGHT LEFT GSV is normal. CFV is compressible, spontaneous, phasic, CFV is compressible, spontaneous, phasic, competent, and demonstrates normal competent and demonstrates normal augmentation. augmentation. FV is compressible, spontaneous, phasic, competent and demonstrates normal augmentation. POP V is compressible, spontaneous, phasic, competent and demonstrates normal augmentation. T/P Trunk is compressible. PTV is compressible. RT PerV is compressible. Nonvascularized structure is noted in the right popliteal fossa that measures 0.47 x 2.14 x 2.78 cm. Procedure This is a venous duplex using B-mode, color flow and spectral Doppler. Exam performed in department. A preliminary report was called and/or faxed to Dr. De La Torre. VL/Venous Duplex US, Unilateral Interpretation Summary Deep veins of the right lower extremity are patent and compressible segmentally . There is no evidence of right lower extremity deep vein thrombosis. The right great saphen[place] us vein appears patent and compressible segmentally. Nonvascularized structure is noted in the right popliteal fossa that measures 0 .47 x 2.14 x 2.78 cm. Ordering Physician: Marco De La Torre Chi Referring Physician: Marco De La Torre Chi Performed By: Teresita Cohen RVT
== END | disposition home or self-care (01) ==
LOC: CVS 13:50
PROVIDERS: PCP Family Medicine Geriatric Medicine; Referring Provider Family Medicine Geriatric Medicine; Visit Provider Family Medicine Geriatric Medicine
DX: M79.89 Other specified soft tissue disorders (principal); M79.604 Pain in right leg
CPT/HCPCS: 93971

== ENCOUNTER → 2024-06-03 | Outpatient (CLI) | payer MEDICARE, SELFPAY ==
[2024-06-03 15:58] LABS: Absolute Lymphocyte Count 1.32 X10^3/uL (0.83-4.51); Absolute Neutrophil Count 4.8 X10^3/uL (2.0-7.7); Basophil# 0.04 X10^3/uL; Basophil% 0.6 % (0-1); Eosinophils% 2.9 % (0-5); Hematocrit 39.1 % (37-47); Hemoglobin 12.7 g/dL (12.0-15.0); Lymphocyte # 1.32 X10^3/ul (0.83-4.51); Lymphocyte % 19.1 % (19-41); Mean Corp Hgb Conc 32.5 g/dL (32-36); Mean Corpuscular Hgb 30.5 pg (27.0-32.0); Mean Platelet Vol. 10.4 fl (6.2-12.0); Monocyte# 0.53 X10^3/uL; Monocyte% 7.7 % (0-10); NRBC Flagged by Analyzer 0 % (0-5); Neutrophil # 4.81 X10^3/uL (2.7-7.7); Neutrophil % 69.4 % (47-70); Platelet Count 261 K/mm3 (150-450); RBC Distribution Width CV 12.7 % (11.6-14.6); RBC Distribution Width SD 43.6 fl (35.1-43.9); Red Blood Count 4.16 M/mm3 (4.2-5.4); White Blood Count 6.9 K/mm3 (4.4-11.0)
[2024-06-03 16:14] LABS: Vitamin D,25 Hydroxy 21.2 ng/mL
[2024-06-03 16:19] LABS: ALB/GLOB Ratio 1.2 RATIO (0.9-2.4); AST(SGOT) 19 U/L (15-37); Alanine Aminotransfer ALT/SGPT 18 U/L (13-56); Alkaline Phosphatase 78 U/L (45-117); Anion Gap 5 (5-15); BUN 19 mg/dL (7-18); BUN/Creat Ratio 17.8 RATIO (10-20); Calcium,Total 9.1 mg/dL (8.5-10.1); Chloride 108 mmol/L (98-107); Cholesterol 239 mg/dL (200); Creatinine, Serum 1.07 mg/dL (0.55-1.02); EST Glomerular Filtration Rate 52 mL/min (>60); Est Glom Filt Rate - Afr Amer 63 mL/min (>60); Globulin 3.3 g/dL (2.2-4.2); Glucose 95 mg/dL (74-106); High Density Lipoprotein 69 mg/dL; Potassium 3.7 mmol/L (3.5-5.1); Protein, Total 7.3 g/dL (6.4-8.2); Sodium Level 141 mmol/L (136-145); Triglycerides 153 mg/dL; Very Low Density Lipoprotein 31 mg/dL (5-40)
== END | disposition home or self-care (01) ==
LOC: POLAB3 14:14
PROVIDERS: PCP Family Medicine Geriatric Medicine; Visit Provider Family Medicine Geriatric Medicine
DX: E78.5 Hyperlipidemia, unspecified (principal); R53.83 Other fatigue; E03.9 Hypothyroidism, unspecified; E55.9 Vitamin D deficiency, unspecified
CPT/HCPCS: 36415; 80053; 80061; 82306; 84443; 85025

== ENCOUNTER → 2024-07-20 | Outpatient (CLI) | payer MEDICARE, SELFPAY | END | disposition home or self-care (01) | LOC: POLAB3 11:13 | PROVIDERS: PCP Family Medicine Geriatric Medicine; Visit Provider Family Medicine Geriatric Medicine | DX: R68.83 Chills (without fever) (principal) | CPT/HCPCS: 87631 ==

== ENCOUNTER → 2024-08-16 | Outpatient (CLI) | payer MEDICARE, SELFPAY ==
--- NOTE | 2024-08-16 07:33 | BI_ITS ---
MAMMOGRAPHY - BILATERAL SCREENING REASON FOR EXAM: Female, 84 years old. Routine annual screening examination. PERTINENT HISTORY: Non-contributory. History of prior left stereotactic breast biopsy. TECHNIQUE: Digital bilateral breast navneet (3D mammographic acquisition) in the CC and MLO projections. 2-D mediolateral oblique (MLO) and craniocaudad (CC) views of both breasts were obtained. CAD: Full Field Digital Mammography with Computer Added Detection was performed. COMPARISON: Comparison is made with prior study dated February 20, 2023 and June 25, 2022. FINDINGS: Breast Composition: There are scattered areas of fibroglandular density. There are no dominant masses or suspicious calcifications. Stable asymmetry of breast tissue with more breast tissue is seen in the upper-outer quadrant of the left breast as compared to the right side. No other significant abnormalities are identified. There has been no significant change since the prior study. BI/SCRN MAMM (CAD)W/NAVNEET BILAT IMPRESSION: Stable bilateral screening mammogram. Yearly follow-up mammogram recommended. (A) ASSESSMENT CATEGORY: BIRADS Category 2: Benign. A letter regarding these results will be sent to the patient by the facility within 30 days. Approximately 10% of breast cancers are not detected by mammography. A normal mammogram should not delay biopsy of a clinically suspicious abnormality. [id number] Electronically Signed: Lasha Jo MD at 10:55 EDT ,
== END | disposition home or self-care (01) ==
LOC: OPBI 07:31
PROVIDERS: PCP Family Medicine Geriatric Medicine; Referring Provider Family Medicine Geriatric Medicine; Visit Provider Family Medicine Geriatric Medicine
DX: Z12.31 Encounter for screening mammogram for malignant neoplasm of breast (principal)
CPT/HCPCS: 77063; 77067

== ENCOUNTER 2024-10-04 12:08 | Emergency (ER) | payer MEDICARE, SELFPAY ==
[2024-10-04 12:09] VITALS: BP 200/73; PULSE 69; RESP 16; TEMP 36.8; O2SAT 100; BMI 25.1
--- NOTE | 2024-10-04 13:51 | EKG12_ITS ---
Test Reason : IRREGULAR HR Blood Pressure : */* mmHG Vent. Rate : 83 BPM Atrial Rate : 83 BPM P-R Int : 164 ms QRS Dur : 80 ms QT Int : 362 ms P-R-T Axes : 33 -35 74 degrees QTcB Int : 425 ms Sinus rhythm with Premature supraventricular complexes Left axis deviation Possible Anterior infarct , age undetermined Abnormal ECG Confirmed by REJI CISNEROS, AMRCIA ([id number]), editor sound LEXI RYAN ([id number]) on 10/05/2024 6:40:27 AM Referred By: SRAVANI Confirmed By: MARCIA MENDOZA MD
[2024-10-04 14:01] LABS: Bacteria 0 SEEN /hpf (None Seen); Mucous, Urine 0 SEEN /hpf (<or=2+); Red Blood Cells-Urine 0 SEEN /hpf (0-5)
[2024-10-04 14:02] LABS: Color, Urine Yellow (Yellow); Glucose, Dipstick Normal (Normal); Ketone-Dipstick Negative (Negative); Leukocyte Esterase-Dipstick 100 /ul (Negative); Nitrite-Dipstick Negative (Negative); Occult Blood-Urine Negative /ul (Negative); Protein-Dipstick 30 mg/dl (Negative); Urine Bilirubin Dipstick Negative (Negative); Urine Clarity Clear (Clear); Urine Urobilinogen Normal (Normal); Urine pH 6.5 (5.0 - 8.0)
[2024-10-04 14:09] VITALS: BP 186/73; PULSE 68; RESP 16; O2SAT 99
[2024-10-04 14:18] LABS: Squamous Epithelial Cells - UA 0-5 SEEN /hpf (5-10); White Blood Cells 0-5 SEEN /hpf (0-5)
[2024-10-04] MEDS: LORazepam 2 MG/ML Syringe 0.5 MG IV (14:18)
--- NOTE | 2024-10-04 14:25 | RAD_ITS ---
STUDY: X-RAY CHEST REASON FOR EXAM: Female, 84 years old. Hypertension . Anxiety. TECHNIQUE: COMPARISON: None. FINDINGS: EKG electrodes are seen. The lungs are clear and expanded. There is no demonstrated pleural abnormality. Normal size heart. Normal mediastinum and nisha. Normal visualized pulmonary arteries. There is atherosclerotic calcification of the aortic arch with tortuosity. There are degenerative changes of the visualized thoracic spine. There is degenerative osteoarthritis of the bilateral shoulders. There is no demonstrated abnormality of the visualized soft tissue structures of the upper abdomen. RAD/Chest 1 View (Portable) IMPRESSION: No acute abnormality is seen. Electronically Signed: Lasha Jo MD at 14:39 EST ,
[2024-10-04 14:31] LABS: Absolute Lymphocyte Count 0.96 X10^3/uL (0.83-4.51); Absolute Neutrophil Count 4.9 X10^3/uL (2.0-7.7); Basophil# 0.03 X10^3/uL; Basophil% 0.5 % (0-1); Eosinophil# 0.08 X10^3/uL; Eosinophils% 1.3 % (0-5); Hematocrit 43.7 % (37-47); Hemoglobin 13.8 g/dL (12.0-15.0); Lymphocyte # 0.96 X10^3/ul (0.83-4.51); Lymphocyte % 15.2 % (19-41); Mean Corp Hgb Conc 31.6 g/dL (32-36); Mean Corpuscular Hgb 30.6 pg (27.0-32.0); Mean Corpuscular Volume 96.9 fL (81-99); Mean Platelet Vol. 10.5 fl (6.2-12.0); Monocyte# 0.31 X10^3/uL; Monocyte% 4.9 % (0-10); NRBC Flagged by Analyzer 0 % (0-5); Neutrophil # 4.92 X10^3/uL (2.7-7.7); Neutrophil % 77.8 % (47-70); Platelet Count 234 K/mm3 (150-450); RBC Distribution Width CV 13.7 % (11.6-14.6); RBC Distribution Width SD 47.5 fl (35.1-43.9); Red Blood Count 4.51 M/mm3 (4.2-5.4); White Blood Count 6.3 K/mm3 (4.4-11.0)
[2024-10-04 14:56] LABS: Anion Gap 9 (5-15); BUN 15 mg/dL (7-18); BUN/Creat Ratio 17.2 RATIO (10-20); Calcium,Total 9.2 mg/dL (8.5-10.1); Chloride 110 mmol/L (98-107); Creatinine, Serum 0.87 mg/dL (0.55-1.02); EST Glomerular Filtration Rate 66 mL/min (>60); Est Glom Filt Rate - Afr Amer 79 mL/min (>60); Estimated Creatinine Clearance 40.28 ml/min; Glucose 93 mg/dL (74-106); Magnesium 2.6 mg/dL (1.6-2.6); Potassium 3.9 mmol/L (3.5-5.1); Sodium Level 140 mmol/L (136-145); T4 Free Direct 1.05 ng/dL (0.76-1.46); Troponin-I HS 13 pg/mL (3.0-54.0)
[2024-10-04 15:04] LABS: BNP,B-Type NATRIURETIC PEPTIDE 48.6 pg/mL (0-100)
--- NOTE | 2024-10-04 15:11 | EX.ED.DYSGE1 ---
HPI History of Present Illness Chief Complaint: Anxiety Narrative Narrative: Chief complaint and HPI: Anxiety. 84-year-old female with history of hypothyroidism and presents for anxiety. Patient states for the past several weeks she has been having complaints of anxiety and anxiety attacks. She states when she develops an episode she gets warm, her heart beats fast, and her legs feel like marshmallows. Patient states she saw her PCP for this who started her on citalopram. Patient states that she read that suicide is a side effect and therefore has not taken her medication. She denies any fever, chills, headache, lightheadedness, chest pain, shortness of breath, abdominal pain, nausea, vomiting, dysuria. Review of systems: See HPI Medications: As listed on the chart Allergies: As listed on the chart PFSH: Per chart Vital signs: As listed on the chart. Reviewed. Physical exam: Gen: A&O x3, anxious Head: Normocephalic, atraumatic Eyes: No sclera icterus, conjunctiva clear, PERRL, EOMI ENT: Moist mucous membranes Neck: Trachea midline, No JVD CV: RRR, no murmurs, no peripheral edema Resp: Lungs CTA BL, no w/r/c GI: Abd soft, non-distended, non-tender, no r/r/g Musc: Full ROM, no deformity Skin: Warm, dry Neuro: Alert, oriented, grossly intact, sensation intact Psych: Cooperative, appropriate mood and affect [facility] Medical History (Updated 10/04/24 @ 15:[address] Luther Ling, DO) Overactive bladder Thyroid disease Knee pain Hemorrhoids Arthritis Home Medications ?Medication ?Instructions ?Recorded ?Last Taken ?Type levothyroxine 50 mcg tablet 50 mcg PO DAILY 01/21/14 Unknown History acetaminophen 325 mg tablet 325 mg PO Q4H PRN 09/05/23 Unknown History (Tylenol) citalopram 10 mg tablet 10 mg PO DAILY 10/04/24 Unknown History Allergy/AdvReac Type Severity Reaction Status Date / Time Penicillins Allergy Unknown Verified 10/04/24 12:11 Sulfa (Sulfonamide Allergy Rash Verified 10/04/24 12:11 Antibiotics) wheat Allergy Hives Verified 10/04/24 12:11 Family History Father Pneumonia from pneumonia Mother MVA (motor vehicle accident) from injuries Surgical History (Updated 09/05/23 @ 08:38 by Sadia Bettencourt) History of hysterectomy Social History (Updated 09/05/23 @ 07:45 by Sadia Bettencourt) Smoking Status: Never smoker alcohol intake: never EXAM Physical Exam Const Vital Signs: 10/04/24 12:09 10/04/24 14:09 Temperature 98.2 F Temperature Source Oral Pulse Rate 69 68 Respiratory Rate 16 16 Blood Pressure 200/73 H 186/73 H Blood Pressure Mean 115 110 Pulse Ox 100 99 Oxygen Delivery Method Room Air Room Air MDM MDM MDM Narrative Medical decision making narrative: 84-year-old female with diagnosis of anxiety presents for evaluation of anxiety. She has not been taking her medication secondary to a risk factor of suicide. Differential diagnosis includes but is not limited to generalized anxiety, panic attacks, electrolyte abnormality, hyperthyroidism, arrhythmia. I did explain why suicide is a black box warning for all anxiety and antidepressant medications. I told her that if she is not comfortable taking this medication she needs to follow-up with her primary care physician to see if she can try other means such as psychiatry/counseling. Patient is currently anxious in the room. She denies any suicidal or homicidal ideation. Vitals are stable other than hypertension. I suspect that this is secondary to patient's anxiety. Patient offered one-time Ativan as she is not driving today. She excepted, this was ordered. Patient states she did not have a workup for her anxiety therefore will obtain laboratory workup to rule out a medical diagnosis for anxiety. EKG and chest x-ray reviewed see below. CBC without leukocytosis or anemia. BMP without significant electrolyte abnormality. No VALERIE. Magnesium unremarkable. Troponin and BNP unremarkable. Thyroid function unremarkable. UA negative for UTI. On reevaluation, patient's anxiety has improved. Her blood pressure is improved. Patient was educated to take her antianxiety medication but monitor for symptoms and feelings of suicidal ideation. If she does not feel comfortable taking as she is to call her PCP tomorrow for further management and plan. She confirmed understanding. Patient was also educated that her blood pressure was high here in our emergency department and she is to follow-up for this outpatient as well. Patient stable discharged home. EKG: Interpreted by me/EM physician: EKG shows normal sinus rhythm with premature supraventricular complexes. No acute ischemic changes. Heart rate 83. Diagnostic: Interpreted by me/EM physician: Chest x-ray without pneumonia, effusion, cardiomegaly, pneumothorax Impression: 1. Anxiety 2. Medication concern 3. Hypertension Lab Data Labs: Laboratory Results - last 24 hr 10/04/24 10/04/24 12:35 14:24 WBC 6.3 RBC 4.51 Hgb 13.8 Hct 43.7 MCV 96.9 MCH 30.6 MCHC 31.6 L RDW Std Deviation 47.5 H RDW Coeff of Cipriano 13.7 Plt Count 234 MPV 10.5 Immature Gran % (Auto) 0.300 Neut % (Auto) 77.8 H Lymph % (Auto) 15.2 L [place] % (Auto) 4.9 Eos % (Auto) 1.3 Baso % (Auto) 0.5 Absolute Neuts (auto) 4.9 Absolute Lymphs (auto) 0.96 Nucleated RBC % 0 Sodium 140 Potassium 3.9 Chloride 110 H Carbon Dioxide 21.0 Anion Gap 9 BUN 15 Creatinine 0.87 Estim Creat Clear Calc 40.28 Est GFR (MDRD) Af Amer 79 Est GFR (MDRD) Non-Af 66 BUN/Creatinine Ratio 17.2 Glucose 93 Calcium 9.2 Magnesium 2.6 Troponin I High Sens 13 B-Natriuretic Peptide 48.6 TSH 2.070 Free T4 1.05 Urine Color Yellow Urine Clarity Clear Urine pH 6.5 Ur Specific [place] 1.010 Urine Protein 30 H Urine Glucose (UA) Normal Urine Ketones Negative Urine Occult Blood Negative Urine Nitrite Negative Urine Bilirubin Negative Urine Urobilinogen Normal Ur Leukocyte Esterase 100 H Urine RBC 0 SEEN Urine WBC 0-5 SEEN Ur Squamous Epith Cells 0-5 SEEN Urine Bacteria 0 SEEN Urine Mucus 0 SEEN Radiography Diagnostic Testing: Clinical Impression(s) from Imaging Studies Chest X-Ray 10/04/24 14:25 IMPRESSION: No acute abnormality is seen. Electronically Signed: Lasha Jo MD at 14:39 EST , Discharge Plan Triage Chief Complaint: Anxiety ED Provider: Luther Ling Dx/Rx/DC Orders Clinical Impression: Anxiety, Hypertension Instructions: Anxiety Disorder Life After Combat, Anxiety Disorders Tx, Anxiety Disorders Meds, ED Hypertension, To Be Confirmed Prescriptions: No Action acetaminophen [Tylenol] 325 mg tablet 325 mg PO Q4H PRN levothyroxine 50 MCG tablet 50 mcg PO DAILY citalopram 10 mg tablet 10 mg PO DAILY Primary Care Provider: Marco De La Torre Chi Referrals: Marco De La Torre Chi, MD [Primary Care Provider] - Activity Restrictions/Additional Instructions: Follow-up with your primary care physician for your anxiety. Your blood pressure was elevated here in the emergency department please follow-up with your primary care physician for this. Print Language: [place] Disposition Disposition: Home, Self Care
[2024-10-04 15:16] VITALS: BP 167/71; PULSE 71; RESP 16; TEMP 36.2; O2SAT 99
== END 2024-10-04 15:28 | disposition home or self-care (01) ==
PROVIDERS: Emergency Provider Surgery; PCP Family Medicine Geriatric Medicine; Visit Provider Surgery
DX: F41.9 Anxiety disorder, unspecified (principal); I10 Essential (primary) hypertension; Z90.710 Acquired absence of both cervix and uterus; E03.9 Hypothyroidism, unspecified
CPT/HCPCS: 71045; 80048; 81001; 83735; 83880; 84439; 84443; 84484; 85025; 93005; 96374; 99282; A4216

== ENCOUNTER → 2024-10-06 | Outpatient (CLI) | payer MEDICARE, SELFPAY ==
--- NOTE | 2024-10-06 16:38 | CT_ITS ---
STUDY: CT BRAIN WITHOUT CONTRAST REASON FOR EXAM: Female, 84 years old. WEAKNESS IN LEGS RADIATION DOSAGE (If Supplied By Facility): CTDIvol = ( 44.99 ) mGy, DLP = ( 812.98 ) mGycm TECHNIQUE: Transaxial CT imaging of the brain was performed without administration of intravenous contrast material. Individualized dose optimization techniques were used for this CT. COMPARISON: 09/17/2023 FINDINGS: Normal soft tissue structures. Normal calvarium. There is mild cerebral atrophy with widening of the extra-axial spaces and ventricular dilatation. There are areas of decreased attenuation within the white matter tracts of the supratentorial brain, consistent with microvascular disease changes. There are small punctate calcifications of the basal ganglia which are seen in the aging brain as a normal variant. Normal brainstem. There is mild cerebellar atrophy. There is no intracranial hemorrhage. There are no findings of an acute ischemic infarction. Normal visualized paranasal sinuses. CT/Brain/Head without Contrast IMPRESSION: Chronic involutional changes of the brain. No change or acute abnormality. Electronically Signed: Hai Marshall MD at 17:48 EST ,
== END | disposition home or self-care (01) ==
LOC: CT 16:33
PROVIDERS: PCP Family Medicine Geriatric Medicine; Referring Provider Family Medicine Geriatric Medicine; Visit Provider Family Medicine Geriatric Medicine
DX: R29.898 Other symptoms and signs involving the musculoskeletal system (principal)
CPT/HCPCS: 70450

== ENCOUNTER → 2024-10-06 | Outpatient (CLI) | payer MEDICARE, SELFPAY ==
[2024-10-06 17:05] LABS: Absolute Lymphocyte Count 1.03 X10^3/uL (0.83-4.51); Absolute Neutrophil Count 6.8 X10^3/uL (2.0-7.7); Basophil# 0.04 X10^3/uL; Basophil% 0.5 % (0-1); Eosinophils% 1.2 % (0-5); Hematocrit 41.4 % (37-47); Hemoglobin 13.5 g/dL (12.0-15.0); Lymphocyte # 1.03 X10^3/ul (0.83-4.51); Lymphocyte % 12.1 % (19-41); Mean Corp Hgb Conc 32.6 g/dL (32-36); Mean Corpuscular Hgb 31.3 pg (27.0-32.0); Mean Corpuscular Volume 95.8 fL (81-99); Mean Platelet Vol. 10.3 fl (6.2-12.0); Monocyte# 0.48 X10^3/uL; Monocyte% 5.6 % (0-10); NRBC Flagged by Analyzer 0 % (0-5); Neutrophil # 6.84 X10^3/uL (2.7-7.7); Neutrophil % 80.2 % (47-70); Platelet Count 280 K/mm3 (150-450); RBC Distribution Width CV 12.8 % (11.6-14.6); RBC Distribution Width SD 45.2 fl (35.1-43.9); Red Blood Count 4.32 M/mm3 (4.2-5.4); White Blood Count 8.5 K/mm3 (4.4-11.0)
[2024-10-06 17:39] LABS: ALB/GLOB Ratio 1.2 RATIO (0.9-2.4); AST(SGOT) 20 U/L (15-37); Alanine Aminotransfer ALT/SGPT 21 U/L (13-56); Albumin, Serum 4.4 g/dL (3.2-5.0); Alkaline Phosphatase 74 U/L (45-117); Anion Gap 7 (5-15); BUN 16 mg/dL (7-18); BUN/Creat Ratio 16.6 RATIO (10-20); Calcium,Total 9.2 mg/dL (8.5-10.1); Chloride 106 mmol/L (98-107); Creatinine, Serum 0.97 mg/dL (0.55-1.02); EST Glomerular Filtration Rate 58 mL/min (>60); Est Glom Filt Rate - Afr Amer 70 mL/min (>60); Globulin 3.6 g/dL (2.2-4.2); Glucose 144 mg/dL (74-106); Potassium 3.9 mmol/L (3.5-5.1); Sodium Level 138 mmol/L (136-145)
[2024-10-07 13:50] LABS: Hemoglobin A1c 5.6 % (3.8-5.6)
== END | disposition home or self-care (01) ==
LOC: POLAB3 16:09
PROVIDERS: PCP Family Medicine Geriatric Medicine; Visit Provider Family Medicine Geriatric Medicine
DX: R03.0 Elevated blood-pressure reading, without diagnosis of hypertension (principal); R29.898 Other symptoms and signs involving the musculoskeletal system; E03.9 Hypothyroidism, unspecified; N39.0 Urinary tract infection, site not specified; R73.09 Other abnormal glucose
CPT/HCPCS: 36415; 80053; 83036; 84443; 85025; 87086; 87088

== ENCOUNTER 2024-10-13 11:45 | Outpatient (RCR) | payer MEDICARE, SELFPAY ==
--- NOTE | 2024-10-13 13:02 | HP.PTEVAL ---
Patient's Visit Information Visit Information Visit Information: JAVED DUNN is a 84 year old F referred to Physical Therapy by Dr. Marco De La Torre MD with a diagnosis of LE weakness. Date of Evaluation: 10/13/24 Physical Therapist: Man Vincent, PT, ATC Visit Plan Frequency: 1-2x /Week Duration: 1 Week Plan: Issue and instruct pt on HEP of B LE strengthening and balance and proprioceptive ex's Subjective Subjective: Pt reports she has been having anxiety attacks lately and she was told those attacks take blood out of the legs and makes them weak. Pt notes she has had a more difficult time with walking and with getting out of her chair at home secondary to her leg weakness which has been going on for approximately 2 weeks. Pt lives in a ranch style house and has an electric chair which goes to her basement. Pt has 2 stairs to get into her house which are becoming more difficult for her to negotiate. Pt has also noticed decreased balance over this episode which has caused her to fall 3-4 times over this time span. Pt reports she is not in any pain right now. Objective Objective: Neuro: B LE sensation is WNL to light touch. TU sec ROM: B LE's are WNL when compared bilaterally Gait: Pt is able to ambulate approximately 40 feet until having to rest secondary to fatigue MMT: B LE's are grossly 3+/5 throughout Balance/Special Test Scores Lower Extremity Functional Score: 14 Goals Goal 1:: I with HEP in 1-2 visits Goal Time Frame: 1 Week Rehabilitation Potential Physical Therapy Diagnosis: Pt has difficulty with ambulation and with transfers secondary to B LE weakness Rehabilitation Potential: Good Anticipated Interventions Patient/Client Instruction: Educate patient on: Condition and Plan of Care For the Purpose of:: To improve self management Therapeutic Exercise to Include: Strength training, Endurance training and Balance training For the Purpose of:: To improve muscle performance and motor function, To increase tolerance to activity/condition/position and To improve performance and independence with ADL's Text: Thank you for the opportunity to evaluate your patient. For Medicare and Medicare HMO plans, please review the plan of care and approve it. It will need to be FAXED BACK to us at [phone] for Medicare purposes. For Medicare only, by signing this I certify the plan of care. Please let me know if there are questions or concerns regarding this plan of care. Physician Signature: Date:
--- NOTE | 2024-12-30 12:25 | HP.PT.NRP ---
Patient Information Patient Information: JAVED DUNN was seen in my office for initial evaluation on 10/13/24. The following Plan of Care was established for this patient: POC Established Initial Frequency: 1-2x /Week Initial Duration: 1 Week Anticipated Interventions Patient/Client Instruction: Educate patient on: Condition and Plan of Care For the Purpose of:: To improve self management Therapeutic Exercise to Include: Strength training, Endurance training and Balance training For the Purpose of:: To improve muscle performance and motor function, To increase tolerance to activity/condition/position and To improve performance and independence with ADL's Last Seen Last Seen: This patient was last seen in our office . Pertinent comments regarding their Physical therapy will appear below: Pt has not returned in 30 days. Discontinue at this time At this point I will be discontinuing this patient from physical therapy. I would be happy to see this patient again in the future if found appropriate by the physician. Thank you! Man Vincent, PT, ATC Balance/Gait/Functional tests Balance/Special Test Scores Lower Extremity Functional Score: 14
== END 2024-10-13 19:00 | disposition home or self-care (01) ==
LOC: PT 11:45
PROVIDERS: PCP Family Medicine Geriatric Medicine; Referring Provider Family Medicine Geriatric Medicine; Visit Provider Family Medicine Geriatric Medicine
DX: R29.898 Other symptoms and signs involving the musculoskeletal system (principal)
CPT/HCPCS: 97161

== ENCOUNTER 2024-10-16 18:52 | Observation (INO) | payer MEDICARE, SELFPAY ==
[2024-10-16] VITALS (10 sets, daily range): BP systolic 111–157; BP diastolic 70–90; PULSE 62–78; RESP 5–19; TEMP 36.6–37.1; O2SAT 94–98; BMI 25.6
--- NOTE | 2024-10-16 19:11 | EKG12_ITS ---
Test Reason : CONFUSION Blood Pressure : */* mmHG Vent. Rate : 71 BPM Atrial Rate : 71 BPM P-R Int : 182 ms QRS Dur : 80 ms QT Int : 388 ms P-R-T Axes : 23 -38 70 degrees QTcB Int : 421 ms Sinus rhythm with frequent Premature ventricular complexes Left axis deviation Minimal voltage criteria for LVH, may be normal variant ( R in aVL ) Inferior infarct , age undetermined Anterolateral infarct , age undetermined Abnormal ECG Confirmed by Brian Stuart ([id number]), news videotape editor KARLA SANTANA ([id number]) on 10/19/2024 10:25:52 AM Referred By: Confirmed By: Brian Stuart
[2024-10-16 19:30] LABS: Absolute Lymphocyte Count 1.16 X10^3/uL (0.83-4.51); Absolute Neutrophil Count 5.1 X10^3/uL (2.0-7.7); Basophil# 0.05 X10^3/uL; Basophil% 0.7 % (0-1); Eosinophil# 0.17 X10^3/uL; Eosinophils% 2.4 % (0-5); Hematocrit 38.3 % (37-47); Hemoglobin 13.1 g/dL (12.0-15.0); Lymphocyte # 1.16 X10^3/ul (0.83-4.51); Lymphocyte % 16.5 % (19-41); Mean Corp Hgb Conc 34.2 g/dL (32-36); Mean Corpuscular Hgb 31.8 pg (27.0-32.0); Monocyte# 0.51 X10^3/uL; Monocyte% 7.2 % (0-10); NRBC Flagged by Analyzer 0 % (0-5); Neutrophil # 5.13 X10^3/uL (2.7-7.7); Neutrophil % 72.9 % (47-70); Platelet Count 245 K/mm3 (150-450); RBC Distribution Width CV 12.4 % (11.6-14.6); RBC Distribution Width SD 42.6 fl (35.1-43.9); Red Blood Count 4.12 M/mm3 (4.2-5.4)
--- NOTE | 2024-10-16 19:30 | RAD_ITS ---
INDICATION: confusion EXAMINATION/TECHNIQUE: X-RAY - XR Chest 1 View COMPARISON: 10/04/2024. FINDINGS: LINES/DEVICES: None. LUNGS: No consolidation, edema or effusion. No pneumothorax. MEDIASTINUM AND CARDIOVASCULAR STRUCTURES: Cardiac silhouette not enlarged. Central airways and mediastinal contour are unremarkable. BONES AND SOFT TISSUES: Unremarkable. RAD/Chest 1 View (Portable) IMPRESSION: No radiographic evidence of acute cardiopulmonary disease. Electronically Signed: Yarelis Griffiths MD at 20:48 EST Reading Location ID and State: [id number] / Tel , Service support ,
--- NOTE | 2024-10-16 19:30 | EX.ED.DYSGE1 ---
HPI History of Present Illness Chief Complaint: General Illness Informant: patient and EMS Narrative Narrative: Brought in by EMS concern for altered mental status. Reported patient on the phone with her friend she got disconnected she would not answer a call therefore EMS was contacted for evaluation for a well check. Reports she was confused therefore is brought here. Patient denies any discomfort except where the IV is placed on her forearm. Denies cough denies vomiting diarrhea production urinary symptoms. Denies headache. Medical history of hypothyroidism. She was seen fairly recently for anxiety she was put on Celexa by her PCP saw side effects of suicidal ideations therefore stopped taking it. She states she is taking her levothyroxine. [facility] Medical History (Updated 10/17/24 @ 00:[address] Berto Mayers DO) Anxiety Overactive bladder Thyroid disease Knee pain Hemorrhoids Arthritis Home Medications ?Medication ?Instructions ?Recorded ?Last Taken ?Type levothyroxine 50 mcg tablet 50 mcg PO DAILY 01/21/14 Unknown History acetaminophen 325 mg tablet 325 mg PO Q4H PRN pain 09/05/23 Unknown History (Tylenol) citalopram 10 mg tablet 10 mg PO DAILY 10/04/24 Unknown History lorazepam 1 mg tablet 1 mg PO Q4H PRN PRN anxiety 10/16/24 Unknown History Allergy/AdvReac Type Severity Reaction Status Date / Time Penicillins Allergy Unknown Verified 10/16/24 18:54 Sulfa (Sulfonamide Allergy Rash Verified 10/16/24 18:54 Antibiotics) wheat Allergy Hives Verified 10/16/24 18:54 Family History Father Pneumonia from pneumonia Mother MVA (motor vehicle accident) from injuries Surgical History History of hysterectomy Social History Smoking Status: Never smoker alcohol intake: never ROS ROS ED Constitutional Constitutional ED: Denies chills or fever(s) ENT ENT ED: Denies sore throat Cardiovascular Cardiovascular: Denies chest pain Respiratory/Chest Respiratory/Chest: Denies cough or dyspnea Gastrointestinal Gastrointestinal: Denies abdominal pain, diarrhea, nausea or vomiting Genitourinary Genitourinary ED: Denies dysuria, hematuria or urinary frequency Musculoskeletal Musculoskeletal: Denies back pain, extremity pain or neck pain Integumentary Denies wounds Neurologic Neurologic: Denies headache(s), paresthesias or weakness EXAM Physical Exam Const Vital Signs: 10/16/24 18:54 10/16/24 18:58 10/16/24 18:58 Temperature 98.8 F 98.8 F Temperature Source Oral Oral Pulse Rate 78 76 Respiratory Rate 18 18 Respiratory Effort Normal Respiratory Pattern Normal Blood Pressure 133/72 H 133/72 H Blood Pressure Mean 92 92 Pulse Ox 94 95 Oxygen Delivery Method Room Air Room Air 10/16/24 19:58 10/16/24 20:10 10/16/24 20:15 Temperature 97.9 F Temperature Source Oral Pulse Rate 66 72 Respiratory Rate 15 17 17 Respiratory Effort Respiratory Pattern Blood Pressure 111/70 Blood Pressure Mean 83 Pulse Ox 95 95 95 Oxygen Delivery Method Room Air 10/16/24 20:30 10/16/24 20:46 10/16/24 21:00 Temperature Temperature Source Pulse Rate 62 71 Respiratory Rate 17 5 L 19 H Respiratory Effort Respiratory Pattern Blood Pressure 121/74 H Blood Pressure Mean 86 Pulse Ox 97 96 Oxygen Delivery Method 10/16/24 21:31 Temperature 98.0 F Temperature Source Pulse Rate 77 Respiratory Rate 16 Respiratory Effort Respiratory Pattern Blood Pressure 136/90 H Blood Pressure Mean 105 Pulse Ox 98 Oxygen Delivery Method Positive well nourished and well developed Constitutional Narrative: Nontoxic General Appearance ED: well developed and NAD HEENT Reports dry mucous membranes normocephalic and atraumatic Mouth ED: Yes dry mucous membranes Mouth: dry mucous membranes Eyes EOMs intact bilaterally and conjunctivae normal General Eye ED: Yes normal appearance of both eyes Neck no lymphadenopathy and supple General: Negative for tenderness Chest Wall Chest: Negative for tenderness Resp normal respiratory effort and normal air movement Effort and Inspection: symmetric chest movement; Negative for respiratory distress Cardio regular rate, regular rhythm and no murmurs Peripheral Pulses: pulses 2+ throughout GI normal to inspection, nondistended, normoactive bowel sounds and non-tender Palpation: Negative for guarding or rebound tenderness present Back/Spine no CVA tenderness and no thoracic nor lumbar tenderness Extremity normal to inspection General Extremety ED: Negative for edema or tenderness General Extremity: Negative for edema Neuro oriented x3 and no sensory deficits noted Sensorium / Orientation: awake and alert Skin no rashes or lesions noted and no wounds MDM MDM MDM Narrative Medical decision making narrative: Interventions / MDM: Differential diagnosis: Weakness, history of hypothyroidism, clinical dehydration Diagnosis considered but do not suspect: Infectious causes however workup negative. No clinical stroke symptoms. My EKG interpretation: Sinus rate of 71, no ST or T wave changes, PVCs noted. QTc 421. Imaging independently reviewed and interpreted by myself: 1 view chest x-ray: No acute process. External documents reviewed: N/A Test considered but not ordered:N/A ED course: Patient alert and orient x 3. Vital stable has dry mucosal membranes. Will check EKG labs urine. IV fluids ordered. 2114: Patient blood work all stable including thyroid urine 25 leukocytes 1+ bacteria she denies any dysuria or frequency. Urine culture sent. Reevaluation patient now states not feeling well. She denied any symptoms on initial evaluation. Her friend is currently present stating she has been weak for a week and patient confirms this. This was not related initially. She lives alone. Typically does not ambulate any assistance. He states he has been to her home daily for the past week helping her with a walker and a wheelchair to get her to the restroom. Per nursing, with her giving urine sample to the commode needed a lot of assistance. She is an independent home. With her weakness, friend stating unable to continue to help her. Will discuss with hospitalist for admission for planned rehab or skilled center. I discussed with Dr. Burks for admission. Re-evaluation: stable Disposition discussed with patient/family/significant other: Patient and friend Case discussed with consulting clinician: Hospitalist This note was generated with [employer] dictation software. It may contain incorrect words, spelling, and punctuation that were not noted in checking the note before signing. Lab Data Labs: Laboratory Results - last 24 hr 10/16/24 10/16/24 10/16/24 19:05 19:05 19:50 WBC 7.0 RBC 4.12 L Hgb 13.1 Hct 38.3 MCV 93.0 MCH 31.8 MCHC 34.2 RDW Std Deviation 42.6 RDW Coeff of Cipriano 12.4 Plt Count 245 MPV 10.0 Immature Gran % (Auto) 0.300 Neut % (Auto) 72.9 H Lymph % (Auto) 16.5 L Mcdonald % (Auto) 7.2 Eos % (Auto) 2.4 Baso % (Auto) 0.7 Absolute Neuts (auto) 5.1 Absolute Lymphs (auto) 1.16 Nucleated RBC % 0 Sodium 138 Potassium 3.7 Chloride 105 Carbon Dioxide 26.0 Anion Gap 7 BUN 12 Creatinine 0.78 Estim Creat Clear Calc 44.19 Est GFR (MDRD) Af Amer 90 Est GFR (MDRD) Non-Af 75 BUN/Creatinine Ratio 15.4 Glucose 88 Calcium 9.2 Total Bilirubin 0.60 AST 17 ALT 18 Alkaline Phosphatase 65 Total Protein 6.8 Albumin 4.0 Globulin 2.8 Albumin/Globulin Ratio 1.4 Folate 8.40 TSH 1.670 1.700 Urine Color Yellow Urine Clarity Clear Urine pH 6.0 Ur Specific [place] 1.010 Urine Protein Negative Urine Glucose (UA) Normal Urine Ketones 5 H Urine Occult Blood Negative Urine Nitrite Negative Urine Bilirubin Negative Urine Urobilinogen Normal Ur Leukocyte Esterase 25 H Urine RBC 0 SEEN Urine WBC 0-5 SEEN Ur Squamous Epith Cells 0-5 SEEN Urine Bacteria 1+ Urine Mucus 0 SEEN Radiography Diagnostic Testing: Clinical Impression(s) from Imaging Studies Chest X-Ray 10/16/24 19:30 IMPRESSION: No radiographic evidence of acute cardiopulmonary disease. Electronically Signed: Yarelis Griffiths MD at 20:48 EST Reading Location ID and State: [id number] / Tel , Service support , Discharge Plan Dx/Rx/DC Orders Clinical Impression: Generalized weakness, Hypothyroidism, Dehydration Disposition Disposition: Acute Care Hospital [facility] Discharge Date/Time: 10/16/24 22:12
[2024-10-16] MEDS: 0.9% Normal Saline (1000mL) 1,000 ML 999 ML IV (19:45)
[2024-10-16 20:04] LABS: Mucous, Urine 0 SEEN /hpf (<or=2+); Red Blood Cells-Urine 0 SEEN /hpf (0-5)
[2024-10-16 20:06] LABS: Color, Urine Yellow (Yellow); Glucose, Dipstick Normal (Normal); Ketone-Dipstick 5 mg/dl (Negative); Leukocyte Esterase-Dipstick 25 /ul (Negative); Nitrite-Dipstick Negative (Negative); Occult Blood-Urine Negative /ul (Negative); Protein-Dipstick Negative (Negative); Urine Bilirubin Dipstick Negative (Negative); Urine Clarity Clear (Clear); Urine Urobilinogen Normal (Normal)
[2024-10-16 20:17] LABS: Bacteria 1+ /hpf (None Seen); Squamous Epithelial Cells - UA 0-5 SEEN /hpf (5-10); White Blood Cells 0-5 SEEN /hpf (0-5)
[2024-10-16 20:24] LABS: ALB/GLOB Ratio 1.4 RATIO (0.9-2.4); AST(SGOT) 17 U/L (15-37); Alanine Aminotransfer ALT/SGPT 18 U/L (13-56); Alkaline Phosphatase 65 U/L (45-117); Anion Gap 7 (5-15); BUN 12 mg/dL (7-18); BUN/Creat Ratio 15.4 RATIO (10-20); Calcium,Total 9.2 mg/dL (8.5-10.1); Chloride 105 mmol/L (98-107); Creatinine, Serum 0.78 mg/dL (0.55-1.02); EST Glomerular Filtration Rate 75 mL/min (>60); Est Glom Filt Rate - Afr Amer 90 mL/min (>60); Estimated Creatinine Clearance 44.19 ml/min; Globulin 2.8 g/dL (2.2-4.2); Glucose 88 mg/dL (74-106); Potassium 3.7 mmol/L (3.5-5.1); Protein, Total 6.8 g/dL (6.4-8.2); Sodium Level 138 mmol/L (136-145)
--- NOTE | 2024-10-16 21:19 | PCM.HP.STD ---
HPI - General General Date of Admission: 10/16/24 Date of Service: 10/16/24 Chief Complaint: Generalized Weakness. HPI Narrative JAVED DUNN, is a 84 F with a past medical history of hypothyroidism, depression with anxiety; on citalopram and lorazepam q. 4 hours prn, listed allergy to PCN (?), listed allergy to sulfonamide antibiotics (rash), overactive bladder, history of hysterectomy and OA; with chronic knee pain and debility causing patient to mobilize with a walker who presents to [facility] ER complaining of generalized weakness. Ms. Dunn reports her symptoms began a few hours prior to arrival after she called a friend and asked for help - but then the friend could not recontact her so she activated D for a wellness check. According to EMS records the [employer] officer that evaluated her noted significant confusion so he called EMS for further evaluation with patient noted to be alert & oriented x 3 - but she was noted to be confused about what was going on around her so she was brought in to the ER for further evaluation and treatment. She denies recent injuries or recent illness and her blood glucose was noted to be 74 mg/dL. There was no report of fever, chills, nausea, vomiting, diarrhea, abdominal pain, diarrhea, constipation, slurred speech or focal neurologic deficits but she was noted to have an acute worsening of her chronic generalized weakness with ambulatory dysfunction. In the ER she was noted to have unremarkable labs, imaging and vital signs with a suspected Adverse Drug Reaction to relatively high-dose lorazepam given this patient's advanced age complicated by an acute worsening of her Chronic Debility and Generalized Weakness and she was then admitted to the general medical floor under observation status for ongoing care for a stay that is expected to be less than 2 midnights. [facility] Medical History Anxiety Overactive bladder Thyroid disease Knee pain Hemorrhoids Arthritis Home Medications ?Medication ?Instructions ?Recorded ?Last Taken ?Type levothyroxine 50 mcg tablet 50 mcg PO DAILY 01/21/14 Unknown History acetaminophen 325 mg tablet 325 mg PO Q4H PRN pain 09/05/23 Unknown History (Tylenol) citalopram 10 mg tablet 10 mg PO DAILY 10/04/24 Unknown History lorazepam 1 mg tablet 1 mg PO Q4H PRN PRN anxiety 10/16/24 Unknown History Allergy/AdvReac Type Severity Reaction Status Date / Time Penicillins Allergy Unknown Verified 10/16/24 18:54 Sulfa (Sulfonamide Allergy Rash Verified 10/16/24 18:54 Antibiotics) wheat Allergy Hives Verified 10/16/24 18:54 Family History Father Pneumonia from pneumonia Mother MVA (motor vehicle accident) from injuries Surgical History History of hysterectomy Social History Smoking Status: Never smoker alcohol intake: never ROS ROS Narrative Review of Systems: Constitutional: Patient denies fever or chills. Eyes: Patient denies changes in vision or discharge from eyes. ENT: Patient denies runny nose, sore throat or ear pain. Resp: Patient denies SOB or cough. CV: Patient denies chest pain, palpitations or heart racing. GI: Patient denies abdominal pain, nausea, vomiting, diarrhea or constipation but she does have a history of hemorrhoids. : Patient denies dysuria or hematuria. MSK: Patient admits to an acute worsening of her chronic debility and generalized weakness. Skin: Patient denies rash, abscess or jaundice. Psych: Patient denies symptoms of uncontrolled depression or anxiety. Allergy: Patient denies lip swelling, tongue swelling or urticaria. Hematology: Patient denies easy bleeding or easy bruisability. Endocrinology: Patient denies polyuria, polydipsia or polyphagia. 14 point ROS otherwise negative except for positives noted above in HPI. Vital Signs Vital Signs Vital Signs: 10/16/24 18:54 10/16/24 18:58 10/16/24 18:58 Temperature 98.8 F 98.8 F Temperature Source Oral Oral Pulse Rate 78 76 Respiratory Rate 18 18 Respiratory Effort Normal Respiratory Pattern Normal Blood Pressure 133/72 H 133/72 H Blood Pressure Mean 92 92 Pulse Ox 94 95 Oxygen Delivery Method Room Air Room Air 10/16/24 19:58 10/16/24 20:10 10/16/24 20:15 Temperature 97.9 F Temperature Source Oral Pulse Rate 66 72 Respiratory Rate 15 17 17 Respiratory Effort Respiratory Pattern Blood Pressure 111/70 Blood Pressure Mean 83 Pulse Ox 95 95 95 Oxygen Delivery Method Room Air 10/16/24 20:30 10/16/24 20:46 10/16/24 21:00 Temperature Temperature Source Pulse Rate 62 71 Respiratory Rate 17 5 L 19 H Respiratory Effort Respiratory Pattern Blood Pressure 121/74 H Blood Pressure Mean 86 Pulse Ox 97 96 Oxygen Delivery Method Weight Weight: 139 lb 15.896 oz Body Mass Index (BMI) 25.6 Physical Exam Const alert, oriented x3, no apparent distress, average body habitus and healthy appearing General Appearance: cooperative HEENT normocephalic, head/scalp atraumatic and hearing grossly normal bilaterally HEENT Narrative: Dry mucous membranes noted. Eyes PERRL and EOMs intact bilaterally Neck no lymphadenopathy and supple Resp normal respiratory effort, no retractions, no use of accessory muscles and clear to auscultation bilaterally Cardio regular rate and regular rhythm GI normal to inspection, nondistended, normoactive bowel sounds, soft to palpation, non-tender and non-distended Extremity normal to inspection, full ROM and no clubbing, cyanosis or edema Skin Skin Narrative: Patient has no evidence of rash, abscess or jaundice. Neuro oriented x3, CN's II-XII intact bilaterally, moves all extremities and no focal motor deficits Sensorium / Orientation: awake, alert, oriented to person, oriented to place and oriented to time Speech: speech normal Psych affect normal Results Medical Records Data Attestation: I reviewed the patient's medical records Lab / Micro Data Attestation: I reviewed the patient's lab results. 10/17/24 05:24 10/17/24 05:24 Labs: Laboratory Results - last 24 hr 10/16/24 19:05: WBC 7.0, RBC 4.12 L, Hgb 13.1, Hct 38.3, MCV 93.0, MCH 31.8, MCHC 34.2, RDW Std Deviation 42.6, RDW Coeff of Cipriano 12.4, Plt Count 245, MPV 10.0, Immature Gran % (Auto) 0.300, Neut % (Auto) 72.9 H, Lymph % (Auto) 16.5 L, [place] % (Auto) 7.2, Eos % (Auto) 2.4, Baso % (Auto) 0.7, Absolute Neuts (auto) 5.1, Absolute Lymphs (auto) 1.16, Nucleated RBC % 0, Sodium 138, Potassium 3.7, Chloride 105, Carbon Dioxide 26.0, Anion Gap 7, BUN 12, Creatinine 0.78, Estim Creat Clear Calc 44.19, Est GFR (MDRD) Af Amer 90, Est GFR (MDRD) Non-Af 75, BUN/Creatinine Ratio 15.4, Glucose 88, Calcium 9.2, Total Bilirubin 0.60, AST 17, ALT 18, Alkaline Phosphatase 65, Total Protein 6.8, Albumin 4.0, Globulin 2.8, Albumin/Globulin Ratio 1.4, TSH 1.670 10/16/24 19:50: Urine Color Yellow, Urine Clarity Clear, Urine pH 6.0, Ur Specific [place] 1.010, Urine Protein Negative, Urine Glucose (UA) Normal, Urine Ketones 5 H, Urine Occult Blood Negative, Urine Nitrite Negative, Urine Bilirubin Negative, Urine Urobilinogen Normal, Ur Leukocyte Esterase 25 H, Urine RBC 0 SEEN, Urine WBC 0-5 SEEN, Ur Squamous Epith Cells 0-5 SEEN, Urine Bacteria 1+, Urine Mucus 0 SEEN Imaging Radiology Impression Chest X-Ray 10/16/24 19:30 IMPRESSION: No radiographic evidence of acute cardiopulmonary disease. Electronically Signed: Yarelis Griffiths MD at 20:48 EST Reading Location ID and State: [id number] / Tel , Service support , Assessment & Plan Assessment/Plan (1) Adverse reaction to drug: QUALIFIERS: Encounter type: initial encounter Qualified Code(s): T50.905A - Adverse effect of unspecified drugs, medicaments and biological substances, initial encounter (2) Debility, unspecified: (3) Generalized weakness: (4) Arthritis: (5) Hypothyroidism: QUALIFIERS: Hypothyroidism type: unspecified Qualified Code(s): E03.9 - Hypothyroidism, unspecified (6) Depression with anxiety: PLAN: Plan 1. Adverse Drug Reaction to relatively high-dose lorazepam given this patient's advanced age - Admit to general medical floor under observation status. Stop lorazepam which is suspected to be playing a significant role in patient's recent decline. Check TSH, B12 and Folate to evaluate for potential metabolic factors contributing to decreased functional status. Otherwise, minimize any new HAIR AND MAKEUP DESIGNER-active medications and monitor for improvement. 2. Acute worsening of her Chronic Debility and Generalized Weakness arising from #1 - PT/OT and Case Management to consult and treat on-rounds in the AM for further recommendations with help appreciated in advance. 3. OA; with chronic knee pain and debility causing patient to mobilize with a walker complicating #1 & #2 - Noted. Give Tylenol prn for pain or fever. 4. Hypothyroidism - Resume Synthroid and check TSH. 5. Depression with anxiety; on citalopram and lorazepam q. 4 hours prn - Continue citalopram but hold lorazepam as the risks outweigh any potential benefit. 6. Listed allergy to PCN (?) - Noted. 7. Listed allergy to sulfonamide antibiotics (rash) - Noted. 8. Overactive bladder - Stable with UA in admission consistent with colonization and not acute infection. 9. History of hysterectomy - Noted for the sake of completeness. 10. DVT prophylaxis - Lovenox 40 mg sq daily plus SCD's. Total time: Approximately (but not less than) 70 minutes. Charges/Coding Visit Charges OBSV E&M: 56195 Observ/hosp same date L2
[2024-10-16] MEDS: 0.9% Normal Saline (1000mL) 1,000 ML 70 ML IV (22:56)
[2024-10-17] MEDS: Levothyroxine 50 MCG Tablet PO (04:13)
[2024-10-17 04:18] VITALS: BP 155/51; PULSE 86; RESP 18; TEMP 36.7; O2SAT 94
[2024-10-17 06:00] VITALS: BMI 21.9
[2024-10-17 06:09] LABS: Absolute Neutrophil Count 7.5 X10^3/uL (2.0-7.7); Basophil# 0.05 X10^3/uL; Basophil% 0.5 % (0-1); Eosinophil# 0.18 X10^3/uL; Eosinophils% 1.9 % (0-5); Hematocrit 37.6 % (37-47); Hemoglobin 12.7 g/dL (12.0-15.0); Lymphocyte % 10.7 % (19-41); Mean Corp Hgb Conc 33.8 g/dL (32-36); Mean Corpuscular Hgb 31.8 pg (27.0-32.0); Mean Platelet Vol. 10.2 fl (6.2-12.0); Monocyte# 0.63 X10^3/uL; Monocyte% 6.7 % (0-10); NRBC Flagged by Analyzer 0 % (0-5); Neutrophil # 7.47 X10^3/uL (2.7-7.7); Neutrophil % 79.9 % (47-70); Platelet Count 225 K/mm3 (150-450); RBC Distribution Width CV 12.3 % (11.6-14.6); RBC Distribution Width SD 42.4 fl (35.1-43.9); White Blood Count 9.4 K/mm3 (4.4-11.0)
[2024-10-17 06:54] LABS: ALB/GLOB Ratio 1.3 RATIO (0.9-2.4); AST(SGOT) 17 U/L (15-37); Alanine Aminotransfer ALT/SGPT 15 U/L (13-56); Albumin, Serum 3.4 g/dL (3.2-5.0); Alkaline Phosphatase 59 U/L (45-117); Anion Gap 9 (5-15); BUN 10 mg/dL (7-18); BUN/Creat Ratio 16.3 RATIO (10-20); Calcium,Total 8.7 mg/dL (8.5-10.1); Chloride 110 mmol/L (98-107); Creatinine, Serum 0.62 mg/dL (0.55-1.02); EST Glomerular Filtration Rate 98 mL/min (>60); Est Glom Filt Rate - Afr Amer 118 mL/min (>60); Estimated Creatinine Clearance 43.59 ml/min; Globulin 2.7 g/dL (2.2-4.2); Glucose 76 mg/dL (74-106); Magnesium 2.2 mg/dL (1.6-2.6); Phosphorus 3.1 mg/dL (2.5-4.9); Potassium 3.5 mmol/L (3.5-5.1); Protein, Total 6.1 g/dL (6.4-8.2); Sodium Level 141 mmol/L (136-145)
--- NOTE | 2024-10-17 07:08 | PCM.PN.HOSP ---
Subjective Subjective Does not know where she is. Objective Data Objective Data Vital Signs: Vital Signs Temp Pulse Resp BP Pulse Ox O2 Del Method 36.7 C 86 18 155/51 H 94 Room Air 10/17/24 04:18 10/17/24 04:18 10/17/24 04:18 10/17/24 04:18 10/17/24 04:18 10/17/24 04:18 Oxygen Delivery Method Room Air Weight: 58.1 kg Body Mass Index (BMI) 21.9 Intake & Output: Intake and Output for Last 24 Hours 10/15/24 10/16/24 10/17/24 23:59 23:59 23:59 Intake Total 1000 / 1000 Balance 1000 / 1000 Lab / Micro Data 10/17/24 05:24 10/17/24 05:24 Labs: Laboratory Results - last 24 hr 10/16/24 19:05: WBC 7.0, RBC 4.12 L, Hgb 13.1, Hct 38.3, MCV 93.0, MCH 31.8, MCHC 34.2, RDW Std Deviation 42.6, RDW Coeff of Cipriano 12.4, Plt Count 245, MPV 10.0, Immature Gran % (Auto) 0.300, Neut % (Auto) 72.9 H, Lymph % (Auto) 16.5 L, [place] % (Auto) 7.2, Eos % (Auto) 2.4, Baso % (Auto) 0.7, Absolute Neuts (auto) 5.1, Absolute Lymphs (auto) 1.16, Nucleated RBC % 0, Sodium 138, Potassium 3.7, Chloride 105, Carbon Dioxide 26.0, Anion Gap 7, BUN 12, Creatinine 0.78, Estim Creat Clear Calc 44.19, Est GFR (MDRD) Af Amer 90, Est GFR (MDRD) Non-Af 75, BUN/Creatinine Ratio 15.4, Glucose 88, Calcium 9.2, Total Bilirubin 0.60, AST 17, ALT 18, Alkaline Phosphatase 65, Total Protein 6.8, Albumin 4.0, Globulin 2.8, Albumin/Globulin Ratio 1.4, Folate 8.40, TSH 1.670 10/16/24 19:05: TSH 1.700 10/16/24 19:50: Urine Color Yellow, Urine Clarity Clear, Urine pH 6.0, Ur Specific [place] 1.010, Urine Protein Negative, Urine Glucose (UA) Normal, Urine Ketones 5 H, Urine Occult Blood Negative, Urine Nitrite Negative, Urine Bilirubin Negative, Urine Urobilinogen Normal, Ur Leukocyte Esterase 25 H, Urine RBC 0 SEEN, Urine WBC 0-5 SEEN, Ur Squamous Epith Cells 0-5 SEEN, Urine Bacteria 1+, Urine Mucus 0 SEEN 10/17/24 05:24: WBC 9.4, RBC 4.00 L, Hgb 12.7, Hct 37.6, MCV 94.0, MCH 31.8, MCHC 33.8, RDW Std Deviation 42.4, RDW Coeff of Cipriano 12.3, Plt Count 225, MPV 10.2, Immature Gran % (Auto) 0.300, Neut % (Auto) 79.9 H, Lymph % (Auto) 10.7 L, [place] % (Auto) 6.7, Eos % (Auto) 1.9, Baso % (Auto) 0.5, Absolute Neuts (auto) 7.5, Absolute Lymphs (auto) 1.00, Nucleated RBC % 0, Sodium 141, Potassium 3.5, Chloride 110 H, Carbon Dioxide 22.0, Anion Gap 9, BUN 10, Creatinine 0.62, Estim Creat Clear Calc 43.59, Est GFR (MDRD) Af Amer 118, Est GFR (MDRD) Non-Af 98, BUN/Creatinine Ratio 16.3, Glucose 76, Calcium 8.7, Phosphorus 3.1, Magnesium 2.2, Total Bilirubin 0.60, AST 17, ALT 15, Alkaline Phosphatase 59, Total Protein 6.1 L, Albumin 3.4, Globulin 2.7, Albumin/Globulin Ratio 1.3 Radiography Diagnostic Testing: Radiology Impression Chest X-Ray 10/16/24 19:30 IMPRESSION: No radiographic evidence of acute cardiopulmonary disease. Electronically Signed: Yarelis Griffiths MD at 20:48 EST Reading Location ID and State: [id number] / Tel , Service support , Physical Exam Const alert and no apparent distress; Negative for oriented x3 HEENT head/scalp atraumatic and moist oral mucous membranes Resp normal respiratory effort, no retractions, no use of accessory muscles and clear to auscultation bilaterally Cardio regular rate, regular rhythm, S1 normal heart sound and S2 normal heart sound GI normal to inspection, nondistended, normoactive bowel sounds, soft to palpation, non-tender and non-distended Extremity normal to inspection and full ROM Neuro No oriented x3 Assessment & Plan Assessment/Plan (1) Adverse reaction to drug: QUALIFIERS: Encounter type: initial encounter Qualified Code(s): T50.905A - Adverse effect of unspecified drugs, medicaments and biological substances, initial encounter (2) Debility, unspecified: PLAN: Plan Toxic encephalopathy 2/2 lorazepam. Reviewed [facility], patient received #180 1 mg lorazepam on 10/06/2024. Unknown how much she may have taken. No prior lorazepam Rx in [facility] for lorazepam. Lorazepam has been held. No metabolic etiology identified. Debility exacerbated by above PT OT evaluate and treat. Chronic conditions: hypothyroidism: continue levothyroxine depression continue citalopram VTE prophylaxis: LMWH. Charges/Coding Visit Charges Inpatient E&M: 80765 Subs Hosp L2
[2024-10-17 09:46] VITALS: BP 150/75; PULSE 89; RESP 18; TEMP 36.6; O2SAT 96
[2024-10-17 09:49] VITALS: PULSE 89; RESP 18; O2SAT 96
[2024-10-17] MEDS: Enoxaparin 40 MG/0.4 ML Syringe SC (09:57)
[2024-10-17] MEDS: Citalopram 10 MG Tablet PO (09:57)
[2024-10-17 16:00] VITALS: BP 150/60; PULSE 75; RESP 18; TEMP 36.6; O2SAT 97
[2024-10-17 16:14] VITALS: PULSE 75; RESP 18; O2SAT 97
[2024-10-17 20:00] VITALS: BP 131/72; PULSE 74; RESP 16; TEMP 36.4; O2SAT 96
[2024-10-18 02:00] VITALS: BP 126/70; PULSE 71; RESP 15; TEMP 36.6; O2SAT 97
[2024-10-18] MEDS: Levothyroxine 50 MCG Tablet PO (05:55)
[2024-10-18 05:59] VITALS: BMI 22.5
[2024-10-18 08:06] LABS: Vitamin B12 517 pg/mL (211-911)
[2024-10-18] MEDS: Enoxaparin 40 MG/0.4 ML Syringe SC (08:08)
[2024-10-18] MEDS: Citalopram 10 MG Tablet PO (08:08)
[2024-10-18 09:15] VITALS: BP 151/86; PULSE 78; RESP 16; TEMP 37.2; O2SAT 95
--- NOTE | 2024-10-18 09:38 | CASEMGMT ---
Discharge Planning A list of SNF providers including quality and resource use data and consistent with the patient's preferred geographic region, medical needs, and insurance network was created in [facility]Port Guide.? This list was provided to the RN PAULA. Marlene Silva, Discharge Planning Asst.
--- NOTE | 2024-10-18 10:52 | CASEMGMT ---
Social Work- SW met with pt to discuss preferences at discharge. Pt was lying in bed, holding phone, staring blankly ahead. Pt was observed to have slow speech and long pauses in response, as pt struggled to recall information and words. Pt observed to have broken dialogue. Pt reported they tole me I came by squad and replied that she was unsure of her friend's name. Pt reports that she isn't sure why her friend Pasquale wasn't responding to her texts and her son hasn't come to see her yet. Pt replies that friend Pasquale sets up pt medications, feeds and takes care of cats, and brings meals for pt. Pt reports that she used to drive; is uncertain of when pt stopped, but reports that it is because of anxiety. Pt reports that she handles her own finances. Pt reports that she thinks she has general anxiety, reporting that there is nothing specific that she worries about and that she didn't know worrying was a disease. Pt reports that she previously took benadryl and tylenol. Pt reports that she has never seen a counselor and just stared ahead when asked how long she has been dealing with anxiety. Pt friend, Pasquale, entered the room at this point & pt broke down sobbing saying you came and I just want to go home. Pt friend Pasquale reports that pt is confused at baseline and has been more confused since med change. Pasquale reports that pt shared her legs felt like marshmallows and that he had been using a wheelchair to take pt to the bathroom for a week prior to admission. Pasquale shared that they lost their spouses at the same time to Alzheimers,met at [facility],and have been caring for one another since. Pasquale reports that pt son is at her home cleaning and would be the contact point for decisions. Pasquale shared that pt son will be coming in to the hospital. SW will follow up on plans for d/c when son arrives. RUPERTO Ibrahim
[2024-10-18 11:17] VITALS: BP 139/72; PULSE 66; RESP 16; TEMP 36.8; O2SAT 97
--- NOTE | 2024-10-18 11:52 | CASEMGMT ---
Met with patient to complete WRIGHT form. WRIGHT form explained to patient who voiced understanding and signed form. Original form placed in pt?s chart and copy provided to patient. Marlene Silva, Discharge Planning Asst
--- NOTE | 2024-10-18 15:57 | CASEMGMT ---
Social Work- JUAN MANUEL met with pt, pt son, and pt friend, Pasquale, to discuss preferences at d/c. Pt reports that she would like referral to [facility]. Pt son reports that pt has 20-25' to kitchen from living room, 10-12' to bathroom from living room, and reports that pt is up frequently throughout the night d/t bladder issues to use the restroom. Pt was observed to have slow speech and challenges with recalling words. Pt will discuss a second choice for referral. JUAN MANUEL advised DCA of referral request. JUAN MANUEL remains available to follow. RUPERTO Ibrahim
--- NOTE | 2024-10-18 16:07 | CASEMGMT ---
Addendum entered by Marlene Silva 10/19/24 11:58: Requested updated physician and therapy notes sent to [facility]. Marlene Silva DC Planning Asst. Addendum entered by Marlene Silva 10/19/24 09:21: [facility] has accepted and will submit for precert. SW updated. Marlene Silva DC Planning Asst. Original Note: Discharge Planning Referral sent via [facility] to [facility]. Marlene Silva DC Planning Asst.
[2024-10-18 17:02] VITALS: BP 141/73; PULSE 70; RESP 16; TEMP 36.9; O2SAT 97
--- NOTE | 2024-10-18 17:14 | PCM.PN.HOSP ---
Reason for Visit Reason for Visit: Diagnoses Hypothyroidism, unspecified (10/16/24) Other specified anxiety disorders (10/16/24) Unspecified osteoarthritis, unspecified site (10/16/24) Weakness (10/16/24) Other malaise (10/16/24) Adverse effect of unspecified drugs, medicaments and biological substances, initial encounter (10/16/24) Subjective Subjective Patient was seen and examined today, she is still having memory problems when I talk with her, I talked to her son who is on the phone today when I was in the room talking with the patient. Patient did not have a CT of the brain performed this admission, I will order a noncontrasted CT of the brain due to patient's generalized weakness and debility. Physical therapy recommended additional therapy in a senior care environment. Objective Data Objective Data Vital Signs: Vital Signs Temp Pulse Resp BP Pulse Ox O2 Del Method 98.5 F 70 16 141/73 H 97 Room Air 10/18/24 17:02 10/18/24 17:02 10/18/24 17:02 10/18/24 17:02 10/18/24 17:02 10/18/24 17:02 Oxygen Delivery Method Room Air Weight: 59.9 kg Body Mass Index (BMI) 22.5 Intake & Output: Intake and Output for Last 24 Hours 10/16/24 10/17/24 10/18/24 23:59 23:59 23:59 Intake Total 1000 / 1000 1800 / 1800 650 / 650 Balance 1000 / 1000 1800 / 1800 650 / 650 Medical Nutrition Assessment Dietitian: Malnutrition Criteria Met Start: 10/17/24 13:28 Freq: Status: Active Protocol: Document 10/17/24 13:28 JENNIFER (Rec: 10/17/24 13:29 [facility] [id number]) Nutrition Malnutrition Evidence of Malnutrition Exists Yes Malnutrition (severe): Acute Illness/Injury Evidenced By Suboptimal Energy Intake ( Severe),Weight Loss (Severe) Clinical Problem Acute Disease or Injury Related Malnutrition Etiology related to physiological changes limiting oral intakes Signs/Symptoms as evidenced by significant weight loss of 6.6% in less than 1 month based upon wt of 137lb per EMR wt hx and estimated oral intakes meeting less than 50% of estimated nutrient needs for ~ 1 week. Status Active Problem Recommendation Dietitian Recommendations/Changes Recommend Regular - General diet for liberalization. Will add gluten free modifier 2/2 wheat allergy. Continue with Ensure Compact TID with medpass to help increase oral intakes. Will continue to follow, monitor weights and oral intakes as able and modify nutrition interventions as needed. Lab / Micro Data 10/17/24 05:24 10/17/24 05:24 Labs: Laboratory Results - last 24 hr 10/16/24 19:05: Vitamin B12 517 Micro: Microbiology 10/16/24 19:50 Urine, Clean Catch Urine Culture - Final Mixed Gram Positive Organisms Physical Exam Const alert, no apparent distress, average body habitus and healthy appearing General Appearance: cooperative, well kempt and well developed Orientation / Consciousness: awake, oriented to person and oriented to place HEENT normocephalic, head/scalp atraumatic and moist oral mucous membranes Eyes PERRL, EOMs intact bilaterally and conjunctivae normal Neck supple, no JVD, thyroid normal and no carotid bruits General: trachea midline Resp normal respiratory effort, no retractions, no use of accessory muscles and clear to auscultation bilaterally Auscultation: Negative for rales, rhonchi or wheezes Cardio regular rate, regular rhythm, S1 normal heart sound, S2 normal heart sound, no murmurs, no rub and no gallops GI normal to inspection, nondistended, normoactive bowel sounds, soft to palpation, non-tender and non-distended Extremity no clubbing, cyanosis or edema Skin no rashes or lesions noted General Skin Exam: no breakdown Neuro CN's II-XII intact bilaterally, moves all extremities, no focal motor deficits and no sensory deficits noted Sensorium / Orientation: awake, alert, oriented to person and oriented to place Speech: speech normal Psych Psych Narrative: Patient has evidence of memory impairment on examination, this appears to be mild at this point Assessment & Plan Assessment/Plan (1) Generalized weakness: PLAN: Plan 1. Acute debility-felt to be secondary to benzodiazepine usage at home with underlying chronic anxiety disorder-PT and OT will continue to work with the patient, sedatives will be held at this time, patient is on Celexa, patient will have a CT of the brain to rule out any acute stroke or cerebrovascular disease #2 chronic anxiety disorder-patient will remain on Celexa at this time, benzodiazepines will be held #3 hypothyroidism-patient is on Synthroid Total clinical time spent by myself addressing the patient's medical issues, reviewing all of her data, and collaborating with patient's care team: 35-minute Charges/Coding Visit Charges Inpatient E&M: 04190 Subs Hosp L2
--- NOTE | 2024-10-18 17:40 | CT_ITS ---
STUDY: CT BRAIN WITHOUT CONTRAST REASON FOR EXAM: Female, 84 years old. Generalized weakness RADIATION DOSAGE (If Supplied By Facility): CTDIvol = ( 44.99 ) mGy, DLP = ( 829.85 ) mGycm TECHNIQUE: Transaxial CT imaging of the brain was performed without administration of intravenous contrast material. Individualized dose optimization techniques were used for this CT. COMPARISON: No relevant priors. FINDINGS: Normal soft tissue structures. Normal calvarium. There is moderate cerebral atrophy with widening of the extra-axial spaces and ventricular dilatation. There are areas of decreased attenuation within the white matter tracts of the supratentorial brain, consistent with microvascular disease changes. Normal basal ganglia and thalami. Normal brainstem. Normal cerebellum. There is no intracranial hemorrhage. There are no findings of an acute ischemic infarction. Normal visualized paranasal sinuses. CT/Brain/Head without Contrast IMPRESSION: Chronic involutional changes of the brain. Electronically Signed: Marquis Mueller MD at 19:20 EST ,
[2024-10-18] MEDS: MELATONIN 3 MG TABLET PO (20:43)
[2024-10-18 20:47] VITALS: BP 147/76; PULSE 74; RESP 16; TEMP 36.7; O2SAT 95
[2024-10-19 05:20] VITALS: BP 167/78; PULSE 74; RESP 16; TEMP 36.8; O2SAT 95
[2024-10-19] MEDS: Levothyroxine 50 MCG Tablet PO (05:21)
[2024-10-19 09:28] VITALS: BP 145/71; PULSE 62; RESP 16; TEMP 36.6; O2SAT 97
--- NOTE | 2024-10-19 10:10 | CASEMGMT ---
Addendum entered by Shanda Michele 10/19/24 12:57: Social Work- SW met with pt, Pasquale, and pt son to provide updates. SW updated pt son contact in computer, as the incorrect number was in chart. RUPERTO Ibrahim Original Note: Social Work- SW met with pt to update that [facility] was able to accept referral. Pt reported I think I should know you when SW introduced self and role. When SW explained that we met yesterday, pt replied that's why I would know you. Pt reports that friend Pasquale is on his way into hospital and uncertain when son is leaving to go back to [place]. Pt gave permission for SW to call son tp update; SW left a vague message on voicemail requesting a call back. SW will watch for friend Pasquale to come to floor to provide updates. Plan: [facility]; precert pend RUPERTO Ibrahim
[2024-10-19] MEDS: Enoxaparin 40 MG/0.4 ML Syringe SC (10:44)
[2024-10-19] MEDS: Citalopram 10 MG Tablet PO (10:44)
[2024-10-19 12:58] VITALS: BP 119/73; PULSE 81; RESP 16; TEMP 36.4; O2SAT 92
--- NOTE | 2024-10-19 13:34 | CASEMGMT ---
Discharge Planning [facility] has obtained auth to admit. SW updated. Marlene Silva DC Planning Asst.
--- NOTE | 2024-10-19 13:49 | PCM.TXEXTCAR ---
Diet Diet Order/Speech Therapy: 10/17/24 13:16 Diet: Regular - General Dietary Modifications:: Gluten Free Routine Orders/Code Status Code Status: Full Code DC O2, CPAP, BIPAP needs Additional Home O2 Discharge instructions: No Therapies Weight Bearing: Full weight bearing Physical Therapy: Eval and Treat Occupational Therapy: Eval and Treat Problem/Diagnosis (1) Generalized weakness: Status: Acute Code(s): R53.1 - Weakness Plan 1. Acute debility-felt to be secondary to benzodiazepine usage at home with underlying chronic anxiety disorder-PT and OT will continue to work with the patient, sedatives will be held at this time, patient is on Celexa, patient will have a CT of the brain to rule out any acute stroke or cerebrovascular disease #2 chronic anxiety disorder-patient will remain on Celexa at this time, benzodiazepines will be held #3 hypothyroidism-patient is on Synthroid Total clinical time spent by myself addressing the patient's medical issues, reviewing all of her data, and collaborating with patient's care team: 35-minute Allergies/Procedures Done in Hospital Allergies Penicillins Allergy (Verified 10/16/24 18:54) Unknown Sulfa (Sulfonamide Antibiotics) Allergy (Verified 10/16/24 18:54) Rash wheat Allergy (Verified 10/16/24 18:54) Hives Procedures: None Type of Care/Length of Stay Estimated LOS: Convalescent Care Less Than 30 days Type of Care Needed: Skilled Rehab Potential: Good Prognosis: Good Additional Orders/Day of Discharge Day of Discharge: 10/19/24 Dietary and Speech Recommendations Dietitian Recommendations/Changes: Recommend Regular - General diet for liberalization. Will add gluten free modifier 2/2 wheat allergy. Continue with Ensure Compact TID with medpass to help increase oral intakes. Will continue to follow, monitor weights and oral intakes as able and modify nutrition interventions as needed. Discharge Plan Admission Admit Date/Time: 10/16/24 21:49 Primary Reason for Your Visit: Debility secondary to adverse drug reaction Attending Provider: Ra Ignacio Primary Care Provider: Marco De La Torre Chi Consulting Providers: Ramez Redmond; Vladislav Ariza Discharge Orders/Prescriptions Prescriptions: New melatonin 3 mg Tablet 3 mg PO QHS PRN PRN (Reason: Insomnia) Qty: 0 0RF Continued acetaminophen [Tylenol] 325 mg tablet 325 mg PO Q4H PRN (Reason: pain) levothyroxine 50 MCG tablet 50 mcg PO DAILY citalopram 10 mg tablet 10 mg PO DAILY Discontinued lorazepam 1 mg tablet 1 mg PO Q4H PRN PRN (Reason: anxiety) Referrals / Follow Up: Marco De La Torre Chi, MD [Primary Care Provider] - Disposition Disposition (needs filled in before D/C Order can be placed): Intermediate Facility
[2024-10-19 15:09] VITALS: BP 133/86; PULSE 86; RESP 16; TEMP 36.6; O2SAT 94
--- NOTE | 2024-10-19 15:09 | DS.PCM_ITS ---
Providers Date of Admission: 10/16/24 Date of Discharge: 10/19/24 Primary Care Physician: Dr. Marco De La Torre MD Reason For Visit: ADVERSE DRUG REACTION TO LORAZEPAM Diagnosis Discharge Diagnosis (1) Generalized weakness: Status: Acute Code(s): R53.1 - Weakness Plan 1. Acute debility-felt to be secondary to benzodiazepine usage at home with underlying chronic anxiety disorder-PT and OT will continue to work with the patient, sedatives will be held at this time, patient is on Celexa, patient will have a CT of the brain to rule out any acute stroke or cerebrovascular disease #2 chronic anxiety disorder-patient will remain on Celexa at this time, benzodiazepines will be held #3 hypothyroidism-patient is on Synthroid #4 acute encephalopathy-etiology unclear Total clinical time spent by myself addressing the patient's medical issues, reviewing all of her data, and collaborating with patient's care team: 35-minute Medications at Discharge Home Medications levothyroxine 50 mcg tablet 50 mcg PO DAILY 01/21/14 acetaminophen 325 mg tablet (Tylenol) 325 mg PO Q4H PRN pain 09/05/23 citalopram 10 mg tablet 10 mg PO DAILY 10/04/24 melatonin 3 mg tablet 3 mg PO QHS PRN PRN Insomnia #0 tabs 10/19/24 Hospital Course Operations None Procedures None Summary of Care Provided Minutes Spent on Discharge: 32 Hospital Course: This 84-year-old white female was seen in the emergency room at [facility] after being brought in by squad with symptoms concerning for altered mental status. EMS had been contacted for evaluation for a well check due to complaints from her friend, she was noted to be confused and brought to the hospital for evaluation. Workup in the ER showed normal CBC and CHEM panel, THS was slightly elevated at 1.6, urinalysis showed +1 bacteria but 0-5 WBCs and 0 RBCs. Patient was admitted for generalized weakness and confusion, it was felt that her confusion was secondary to an adverse reaction to Ativan at home. Patient was seen by PT and OT, her mental status improved slightly the next day but she remained mildly confused and the patient's family requested temporary placement in the senior care facility. On 10/19/2024, patient was seen and examined: On examination she appeared in good health and spirits, she does not appear to be in any distress. Vital signs as documented. Skin warm and dry and without overt rashes. Neck without JVD, thyroid appears normal, trachea is midline, neck is supple. Lungs clear, normal air movement was noted. Heart exam notable for regular rhythm, normal sounds and absence of murmurs, rubs or gallops. Abdomen unremarkable and without evidence of organomegaly, masses, or abdominal aortic enlargement, bowel sounds are present in all 4 quadrants, no abdominal tenderness was noted. Extremities nonedematous, no cyanosis was noted, no clubbing was noted. Neuro: Cranial nerves II through XII are grossly intact, no focal motor deficits were noted, sensation to light touch and pinprick is intact, motor exam 5/5 throughout. Psych: Patient is alert and exhibits mild confusion On 10/19/2024, patient was transferred to senior care facility for short- term rehab services. Medical Records Data Medical Nutrition Assessment Dietitian: Malnutrition Criteria Met Start: 10/17/24 13:28 Freq: Status: Active Protocol: Document 10/17/24 13:28 JENNIFER (Rec: 10/17/24 13:29 [facility] [id number]) Nutrition Malnutrition Evidence of Malnutrition Exists Yes Malnutrition (severe): Acute Illness/Injury Evidenced By Suboptimal Energy Intake ( Severe),Weight Loss (Severe) Clinical Problem Acute Disease or Injury Related Malnutrition Etiology related to physiological changes limiting oral intakes Signs/Symptoms as evidenced by significant weight loss of 6.6% in less than 1 month based upon wt of 137lb per EMR wt hx and estimated oral intakes meeting less than 50% of estimated nutrient needs for ~ 1 week. Status Active Problem Recommendation Dietitian Recommendations/Changes Recommend Regular - General diet for liberalization. Will add gluten free modifier 2/2 wheat allergy. Continue with Ensure Compact TID with medpass to help increase oral intakes. Will continue to follow, monitor weights and oral intakes as able and modify nutrition interventions as needed. Weight / BMI Weight Weight: 59.9 kg Body Mass Index (BMI) 22.5 ABG / Lab / Microbiology Data 10/17/24 05:24 10/17/24 05:24 Microbiology: Microbiology 10/16/24 19:50 Urine, Clean Catch Urine Culture - Final Mixed Gram Positive Organisms Radiography Diagnostic Testing: Radiology Impression Brain CT 10/18/24 17:40 IMPRESSION: Chronic involutional changes of the brain. Electronically Signed: Marquis Mueller MD at 19:20 EST , D/C Instructions DC O2, CPAP, BIPAP Needs Additional Home O2 Discharge instructions: No DC home with Oxygen: No Meaningful Use Info Meaningful Use Meaningful Use Diagnoses (Choose all that apply): None applicable Ischemic Stroke Statin Dosing Therapy Reference: STATIN DOSE THERAPY REFERENCE: * Patients > 75 years receive moderate or high dose statin therapy. * Patients 75 years or YOUNGER should receive HIGH intensity statin dose unless contraindicated. You will be required to document reason for non-treatment if statin daily dose does not meet guidelines. HIGH DOSE STATIN THERAPY DAILY Atorvastatin > than or = to 40 mg Rosuvastatin > than or = to 20 mg Amlodipine + Atorvastatin > than or = to 2.5/40 mg Ezetimibe + Simvastatin 10/80 mg Simvastatin 80mg Discharge Plan Admission Admit Date/Time: 10/16/24 21:49 Primary Reason for Your Visit: Debility secondary to adverse drug reaction Attending Provider: Ra Ignacio Primary Care Provider: Marco De La Torre Chi Consult[employer] Providers: Ramez Redmond; Vladislav Ariza Discharge Orders/Prescriptions Prescriptions: New melatonin 3 mg Tablet 3 mg PO QHS PRN PRN (Reason: Insomnia) Qty: 0 0RF Continued acetaminophen [Tylenol] 325 mg tablet 325 mg PO Q4H PRN (Reason: pain) levothyroxine 50 MCG tablet 50 mcg PO DAILY citalopram 10 mg tablet 10 mg PO DAILY Discontinued lorazepam 1 mg tablet 1 mg PO Q4H PRN PRN (Reason: anxiety) Referrals / Follow Up: Marco De La Torre Chi, MD [Primary Care Provider] - Disposition Disposition (needs filled in before D/C Order can be placed): [facility] Charges/Coding Visit Charges Inpatient E&M: 43236 Disch Hosp >30min
--- NOTE | 2024-10-19 15:15 | CASEMGMT ---
Social Work Precert has been obtained.? Physician updated and pt is ready for discharge today.? PASRR form completed in [facility]. SW met with pt and they are agreeable to discharge plan as stated above.?DCA and bedside nurse notified of discharge. Disposition:[facility]?, skilled level of care under convalescent stay. RUPERTO bIrahim
--- NOTE | 2024-10-19 15:45 | CASEMGMT ---
Discharge Planning Discharge orders, signed med list, and transport time sent to [facility]. Physicians will transport patient by wheelchair at 4:15p. Nursing, SW, pt, and her friend (Pasquale) updated. Phone number on file for pts son was not correct. Marlene Silva DC Planning Asst.
== END 2024-10-19 16:36 | disposition skilled nursing facility (03) ==
LOC: ED 19:24 → MS3 21:45
PROVIDERS: Admitting Provider Internal Medicine; Emergency Provider Emergency Medicine; PCP Family Medicine Geriatric Medicine; Visit Provider Internal Medicine
DX: R53.81 Other malaise (principal); G92.8 Other toxic encephalopathy; M19.90 Unspecified osteoarthritis, unspecified site; E86.0 Dehydration; R41.0 Disorientation, unspecified; Z79.890 Hormone replacement therapy; T42.4X5A Adverse effect of benzodiazepines, initial encounter; E43 Unspecified severe protein-calorie malnutrition; E03.9 Hypothyroidism, unspecified; F41.8 Other specified anxiety disorders; Z79.899 Other long term (current) drug therapy; Z68.22 Body mass index [BMI] 22.0-22.9, adult; Z23 Encounter for immunization
CPT/HCPCS: 36415; 70450; 71045; 80053; 81001; 82607; 82746; 83735; 84100; 84443; 85025; 87086; 87088; 90471; 93005; 94668; 96360; 96361; 96372; 97162; 97166; 97530; 97535; 97802; 99221; 99285; A4216; G0378

== ENCOUNTER → 2024-11-10 | Outpatient (CLI) | payer MEDICARE, SELFPAY ==
--- NOTE | 2024-11-10 13:23 | NEURO ---
NCS and/or EMG Patient Report Ordering Doctor: Marco De La Torre Chi DATE OF SERVICE: 11/10/24 Ann presents with complaints of numbness in both feet. Electrodiagnostic Findings: Right peroneal motor nerve demonstrates normal distal latency, amplitude and conduction velocity. Left peroneal motor nerve demonstrates prolonged latency with normal amplitude and?reflux bilaterally. Borderline prolonged left tibial F?wave. Prolonged right sural latency is noted. Normal superficial peroneal latency is noted bilaterally. Needle EMG testing was performed the lower limbs. All muscles tested showed no evidence of denervation with normal motor unit action potentials. Electrodiagnostic impression: This is an abnormal study in the lower limbs. 1. Electrodiagnostic findings suggestive of peripheral polyneuropathy with motor and sensory nerve involvement. There is no evidence of axonal loss. 2. No electrodiagnostic evidence is noted for lumbosacral radiculopathy. Multi Select Codes Neurology Neurology Interp Codes: 20340-07 Musc test done w/n test comp (interp) (2) and 37442-98 Nrv cndj test 9-10 studies (interp)
== END | disposition home or self-care (01) ==
PROVIDERS: PCP Family Medicine Geriatric Medicine; Referring Provider Family Medicine Geriatric Medicine; Visit Provider Family Medicine Geriatric Medicine
DX: R29.898 Other symptoms and signs involving the musculoskeletal system (principal)
CPT/HCPCS: 95886; 95911

== ENCOUNTER → 2024-11-15 | Outpatient (CLI) | payer MEDICARE, SELFPAY ==
--- NOTE | 2024-11-15 13:55 | NEURO_ITS ---
NCS and/or EMG Patient Report Ordering Doctor: Marco De La Torre Chi DATE OF SERVICE: 11/15/24 Clinical Summary: 84 year old female patient with symptoms of numbness in both hands. A bilateral upper extremity EMG/NCS was performed. Nerve Conduction Studies Summary: Nerve conductions were performed in the bilateral upper extremities. The median- D2 SNAP distal latency was prolonged bilaterally. The right ulnar-D5 SNAP distal latency was prolonged. The median-APB CMAP distal latency was prolonged bilaterally. The left median motor conduction velocity was reduced in the forearm segment. Needle Examination Summary: Needle examination of select muscles of the bilateral upper extremities demonstrated a higher proportion of motor unit action potentials with reduced recruitment, increased amplitude, increased duration, and polyphasia in the bilateral abductor pollicis brevis muscles. Impression: This is an abnormal bilateral upper extremity study. 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 Multi Select Codes Neurology Neurology Interp Codes: 68583-14 Musc test done w/n test comp (interp) (2) and 82628-64 Nrv cndj test 9-10 studies (interp)
== END | disposition home or self-care (01) ==
PROVIDERS: PCP Family Medicine Geriatric Medicine; Referring Provider Family Medicine Geriatric Medicine; Visit Provider Family Medicine Geriatric Medicine
DX: R29.898 Other symptoms and signs involving the musculoskeletal system (principal)
CPT/HCPCS: 95886; 95911

== ENCOUNTER → 2024-11-22 | Outpatient (CLI) | payer MEDICARE, SELFPAY ==
--- NOTE | 2024-11-22 08:45 | MRI_ITS ---
STUDY: MRI BRAIN WITHOUT CONTRAST REASON FOR EXAM: Female, 84 years old. B/L LEG WEAKNESS, NUMBNESS BILAT HANDS TECHNIQUE: Standardized multiplanar fat and water weighted pulse sequences were obtained. COMPARISON: 09/18/2023 FINDINGS: There is moderate cerebral atrophy with widening of the extra-axial spaces and ventricular dilatation. There are a limited number of small white matter hyperintensities, distributed throughout the deep white matter tracts of the cerebral hemispheres, consistent with mild chronic white matter ischemic changes. There is no evidence for recent intracranial ischemia or other cause of cytotoxic edema on diffusion weighted imaging (DWI). Normal T2* images of the brain without demonstrated susceptibility artifact. There is no demonstrated hemosiderin stain. Normal bilateral basal ganglia. Normal thalami. There is no extra-axial fluid accumulation. Normal flow voids within the major intracranial circulation suggesting patency by spin echo criteria. Normal sella turcica, pituitary gland, infundibular stalk, optic chiasm and hypothalamus. Normal tectal plate and pineal gland. There are chronic white matter ischemic changes of the ki. The midbrain and medulla are otherwise normal. Normal cerebellum. Normal basal cisterns. Normal bilateral temporal bones. Normal bilateral internal auditory canals. There are bilateral ocular lens implants with otherwise normal intraorbital contents. Normal visualized paranasal sinuses. Normal calvarium and skull base. Normal visualized soft tissue structures. Normal visualized upper cervical spine. MRI/Brain without Contrast IMPRESSION: Involutional changes of the brain, as described above. No acute infarct. Electronically Signed: Gerry Harrington MD at 10:13 EST ,
== END | disposition home or self-care (01) ==
PROVIDERS: PCP Family Medicine Geriatric Medicine; Referring Provider Family Medicine Geriatric Medicine; Visit Provider Family Medicine Geriatric Medicine
DX: R29.898 Other symptoms and signs involving the musculoskeletal system (principal)
CPT/HCPCS: 70551

== ENCOUNTER → 2024-12-08 | Outpatient (CLI) | payer MEDICARE, SELFPAY ==
[2024-12-08 14:31] LABS: Absolute Lymphocyte Count 0.98 X10^3/uL (0.83-4.51); Absolute Neutrophil Count 6.1 X10^3/uL (2.0-7.7); Basophil# 0.04 X10^3/uL; Basophil% 0.5 % (0-1); Eosinophil# 0.06 X10^3/uL; Eosinophils% 0.8 % (0-5); Hematocrit 42.1 % (37-47); Hemoglobin 13.6 g/dL (12.0-15.0); Lymphocyte # 0.98 X10^3/ul (0.83-4.51); Lymphocyte % 12.6 % (19-41); Mean Corp Hgb Conc 32.3 g/dL (32-36); Mean Corpuscular Hgb 31.2 pg (27.0-32.0); Mean Corpuscular Volume 96.6 fL (81-99); Monocyte% 6.5 % (0-10); NRBC Flagged by Analyzer 0 % (0-5); Neutrophil # 6.14 X10^3/uL (2.7-7.7); Neutrophil % 79.2 % (47-70); Platelet Count 281 K/mm3 (150-450); RBC Distribution Width CV 12.8 % (11.6-14.6); RBC Distribution Width SD 45.5 fl (35.1-43.9); Red Blood Count 4.36 M/mm3 (4.2-5.4); White Blood Count 7.8 K/mm3 (4.4-11.0)
[2024-12-08 15:30] LABS: Vitamin D,25 Hydroxy 25.2 ng/mL
[2024-12-08 15:33] LABS: ALB/GLOB Ratio 1.2 RATIO (0.9-2.4); AST(SGOT) 16 U/L (15-37); Alanine Aminotransfer ALT/SGPT 16 U/L (13-56); Albumin, Serum 4.3 g/dL (3.2-5.0); Alkaline Phosphatase 72 U/L (45-117); Anion Gap 7 (5-15); BUN 13 mg/dL (7-18); BUN/Creat Ratio 9.8 RATIO (10-20); Calcium,Total 9.4 mg/dL (8.5-10.1); Chloride 104 mmol/L (98-107); Creatinine, Serum 1.33 mg/dL (0.55-1.02); EST Glomerular Filtration Rate 40 mL/min (>60); Est Glom Filt Rate - Afr Amer 49 mL/min (>60); Globulin 3.5 g/dL (2.2-4.2); Glucose 96 mg/dL (74-106); Potassium 4.1 mmol/L (3.5-5.1); Protein, Total 7.8 g/dL (6.4-8.2); Sodium Level 140 mmol/L (136-145)
== END | disposition home or self-care (01) ==
LOC: POLAB3 14:22
PROVIDERS: PCP Family Medicine Geriatric Medicine; Visit Provider Family Medicine Geriatric Medicine
DX: R53.83 Other fatigue (principal); E55.9 Vitamin D deficiency, unspecified
CPT/HCPCS: 36415; 80053; 82306; 84443; 85025

== ENCOUNTER → 2025-01-20 | Outpatient (CLI) | payer MEDICARE, SELFPAY ==
[2025-01-20 19:10] LABS: Anion Gap 14 (5-15); BUN 19 mg/dL (4-19); BUN/Creat Ratio 22.2 RATIO (10-20); Calcium 9.3 mg/dL (7.6-11.0); Carbon Dioxide 20.6 mmol/L (22.0-29.0); Chloride 103 mmol/L (96-108); Creatinine, Serum 0.85 mg/dL (0.70-1.20); EST Glomerular Filtration Rate 66 (>60); Glucose 92 mg/dL (70-99); Potassium 4.1 mmol/L (3.3-5.1); Sodium Level 137 mmol/L (133-145)
== END | disposition home or self-care (01) ==
LOC: POLAB3 16:44
PROVIDERS: PCP Family Medicine Geriatric Medicine; Visit Provider Family Medicine Geriatric Medicine
DX: N18.32 Chronic kidney disease, stage 3b (principal)
CPT/HCPCS: 36415; 80048

== ENCOUNTER → 2025-03-07 | Outpatient (CLI) | payer MEDICARE, SELFPAY ==
[2025-03-07 14:30] LABS: Absolute Lymphocyte Count 1.23 X10^3/uL (0.83-4.51); Absolute Neutrophil Count 7.1 X10^3/uL (2.0-7.7); Basophil# 0.05 X10^3/uL; Basophil% 0.6 % (0-1); Eosinophil# 0.12 X10^3/uL; Eosinophils% 1.3 % (0-5); Hematocrit 38.9 % (37-47); Hemoglobin 12.9 g/dL (12.0-15.0); Lymphocyte # 1.23 X10^3/ul (0.83-4.51); Lymphocyte % 13.7 % (19-41); Mean Corp Hgb Conc 33.2 g/dL (32-36); Mean Corpuscular Hgb 31.6 pg (27.0-32.0); Mean Corpuscular Volume 95.3 fL (81-99); Mean Platelet Vol. 10.2 fl (6.2-12.0); Monocyte# 0.46 X10^3/uL; Monocyte% 5.1 % (0-10); NRBC Flagged by Analyzer 0 % (0-5); Neutrophil # 7.11 X10^3/uL (2.7-7.7); Platelet Count 264 K/mm3 (150-450); RBC Distribution Width CV 12.8 % (11.6-14.6); RBC Distribution Width SD 43.8 fl (35.1-43.9); Red Blood Count 4.08 M/mm3 (4.2-5.4)
[2025-03-07 15:05] LABS: Vitamin D,25 Hydroxy 26.7 ng/mL (30-100)
[2025-03-07 15:08] LABS: ALB/GLOB Ratio 1.8 RATIO (0.9-2.4); AST(SGOT) 23 U/L (<=31); Alanine Aminotransfer ALT/SGPT 11 U/L (<=34); Albumin, Serum 4.5 g/dL (3.4-4.8); Alkaline Phosphatase 68 U/L (35-104); Anion Gap 11 (5-15); BUN 18 mg/dL (4-19); BUN/Creat Ratio 18.7 RATIO (10-20); Calcium,Total 9.4 mg/dL (7.6-11.0); Carbon Dioxide 23.2 mmol/L (21.0-32.0); Chloride 105 mmol/L (98-108); Creatinine, Serum 0.94 mg/dL (0.70-1.20); EST Glomerular Filtration Rate 59 (>60); Globulin 2.6 g/dL (2.2-4.2); Glucose 98 mg/dL (70-99); Potassium 4.3 mmol/L (3.3-5.1); Sodium Level 139 mmol/L (133-145); Total Bilirubin 0.29 mg/dL (0.00-1.30)
== END | disposition home or self-care (01) ==
LOC: LAB 13:48
PROVIDERS: PCP Family Medicine Geriatric Medicine; Referring Provider Family Medicine Geriatric Medicine; Visit Provider Family Medicine Geriatric Medicine
DX: E55.9 Vitamin D deficiency, unspecified (principal); R53.83 Other fatigue
CPT/HCPCS: 36415; 80053; 82306; 84443; 85025

== ENCOUNTER → 2025-06-07 | Outpatient (CLI) | payer MEDICARE, SELFPAY ==
[2025-06-07 13:23] LABS: Hematocrit 39.5 % (37-47); Hemoglobin 12.9 g/dL (12.0-15.0); Immature Granulocytes Count 0.020 X10^3/uL (0.0-0.0); Mean Corp Hgb Conc 32.7 g/dL (32-36); Mean Corpuscular Volume 95.0 fL (81-99); Mean Platelet Vol. 10.0 fl (6.2-12.0); NRBC Flagged by Analyzer 0 % (0-5); Platelet Count 259 K/mm3 (150-450); RBC Distribution Width CV 12.6 % (11.6-14.6); RBC Distribution Width SD 43.9 fl (35.1-43.9); Red Blood Count 4.16 M/mm3 (4.2-5.4); White Blood Count 7.3 K/mm3 (4.4-11.0)
[2025-06-07 14:55] LABS: AST(SGOT) 23 U/L (<=31); Alanine Aminotransfer ALT/SGPT 12 U/L (<=34); Albumin, Serum 4.5 g/dL (3.4-4.8); Alkaline Phosphatase 78 U/L (35-104); Anion Gap 11 (5-15); BUN 20 mg/dL (4-19); BUN/Creat Ratio 21.3 RATIO (10-20); Calcium,Total 9.6 mg/dL (7.6-11.0); Carbon Dioxide 25.0 mmol/L (21.0-32.0); Chloride 103 mmol/L (98-108); Globulin 2.7 g/dL (2.2-4.2); Glucose 99 mg/dL (70-99); Potassium 4.5 mmol/L (3.3-5.1); Vitamin D,25 Hydroxy 30.8 ng/mL (30-100)
[2025-06-07 21:09] LABS: Xtra Tube Kwok EXTRA TUBE
== END | disposition home or self-care (01) ==
LOC: POLAB3 13:09
PROVIDERS: PCP Family Medicine Geriatric Medicine; Visit Provider Family Medicine Geriatric Medicine
DX: I10 Essential (primary) hypertension (principal); E55.9 Vitamin D deficiency, unspecified
CPT/HCPCS: 36415; 80053; 82306; 84443; 85025

== ENCOUNTER → 2025-08-17 | Outpatient (CLI) | payer MEDICARE, SELFPAY ==
--- NOTE | 2025-08-17 12:48 | BI_ITS ---
EXAM: SCRN MAMM (CAD)W/NAVNEET BILAT DATE: 08/17/2025 CLINICAL HISTORY: F, Age 85 y/o , SCREENING No family history. Prior left stereotactic breast biopsy. TECHNIQUE: Procedure Code: [id number] Modality: MG Procedure: SCRN MAMM (CAD)W/NAVNEET BILAT COMPARISON: Prior exam(s) dated August 16, 2024.. FINDINGS: TISSUE DENSITY: There are scattered areas of fibroglandular density. Bilateral Breast Mammographic Findings: No significant masses, calcifications or other abnormalities are identified. Stable asymmetry of breast tissue were more breast tissue is seen in the upper-outer quadrant of the left breast as compared to the right side. Stable secretory calcifications in both inferior medial aspects of both breasts. No suspicious masses, areas of developing architectural distortion, or suspicious calcifications. There has been no significant interval change. BI/SCRN MAMM (CAD)W/NAVNEET BILAT IMPRESSION: Stable bilateral screening mammogram. OVERALL FINAL ASSESSMENT BI-RADS 2: BENIGN RECOMMENDATION: Routine annual follow-up in 1 Year Additional Recommendation none A letter with findings and recommendations will be mailed to the patient. Reading Location: [facility]
== END | disposition home or self-care (01) ==
LOC: OPBI 12:47
PROVIDERS: PCP Family Medicine Geriatric Medicine; Referring Provider Family Medicine Geriatric Medicine; Visit Provider Family Medicine Geriatric Medicine
DX: Z12.31 Encounter for screening mammogram for malignant neoplasm of breast (principal)
CPT/HCPCS: 77063; 77067